=== PATIENT | female | born 1950 | race Caucasian/White ===

== ENCOUNTER 2024-10-25 08:46 | Observation (INO) | payer MEDICARE, MEDICAID, SELFPAY ==
[2024-10-25] VITALS (15 sets, daily range): BP systolic 91–139; BP diastolic 56–90; PULSE 60–115; RESP 14–22; TEMP 36.9–38.9; O2SAT 84–100; BMI 45.7; BMI 46.0
--- NOTE | 2024-10-25 08:49 | HMH.EDGENADL ---
Discharge Plan Disposition Patient Disposition: Admitted Clinical Impressions Clinical Impression: Sepsis Discharge ED Provider: Nathen Etienne General Adult HPI General Chief complaint: Fever Stated complaint: hypotenion,hypoglycemia Time Seen by Provider: 10/25/24 08:48 History of Present Illness HPI narrative: The patient presents with a history of low blood pressure, initially recorded in the 40s, which improved to around 100 before leaving their regular doctor's office. They also report fluctuating blood sugar levels, with a recent episode of hypoglycemia at midnight when their sugar level dropped to 52. The patient's caregiver had to force-feed them to increase their sugar levels, and the blood sugar was checked during the visit, measuring at 89. The patient underwent surgery two months ago for the removal of a charity and two broken screws, and a complete reconstruction of the heel. They have visited the ER twice this month due to pain and suspected infection, but it was determined that the issue was related to the medication from the surgery. The patient reports experiencing sharp chest pain. They deny any fever, abdominal pain, or pain during urination. They also deny any head injury. The patient is currently taking pain medication (Oxycodone, 5 mg) for their leg. Please note that above description of symptoms, in this electronic medical record under categorization of recalled from ER triage doctor by RN are reflective of an initial nursing assessment, however, is not reflective of my full history and physical exam that was personally taken and clarified. Consequentially, this preceding description of symptoms, which may include the patient's categorized chief complaint in the EMR, do not reflect my personal clinical impression, and the ultimate description of history of present illness and patient stated complaints should be deferred to this section of the note. Unless stated otherwise or congruent with this section of the note, additional signs, symptoms, or incongruence should be interpreted as inaccurate with my clinical impression. Related Data Home Medications ?Medication ?Instructions ?Recorded ?Confirmed aspirin 81 mg chewable tablet 81 mg PO DAILY heart 11/10/23 10/23/24 diclofenac sodium 50 mg 50 mg PO DAILY Arthritis 11/10/23 10/23/24 tablet,delayed release famotidine 20 mg tablet 20 mg PO DAILY GERD 11/10/23 10/23/24 ferrous sulfate 325 mg (65 mg 325 mg PO DAILY anemia 11/10/23 10/23/24 iron) tablet lactulose 10 gram/15 mL oral 20 g PO DAILY PRN bowel care 11/10/23 10/23/24 solution ondansetron HCl 4 mg tablet 4 mg PO Q6H PRN nausea and vomiting 11/10/23 10/23/24 levothyroxine 88 mcg capsule 88 mcg PO .6am hypothyroidism 11/11/23 10/23/24 lisinopril 20 mg tablet 20 mg PO DAILY HTN 11/11/23 10/23/24 magnesium oxide 500 mg capsule 500 mg PO DAILY hypomagnesium 11/11/23 10/23/24 omega 7-mqf-gcd-fish oil 300 2 cap PO DAILY hyperlipidemia 11/11/23 10/23/24 mg-1,000 mg capsule (Fish Oil) sennosides 8.6 mg-docusate sodium 2 tab-cap PO DAILY 11/11/23 10/23/24 50 mg tablet (Senexon-S) simvastatin 20 mg tablet 20 mg PO HS Cholesterol 11/11/23 10/23/24 Previous Rx's ?Medication ?Instructions ?Recorded metformin 1,000 mg tablet 1,000 mg PO BID #180 tabs 12/20/23 pseudoephedrine HCl 60 mg tablet 60 mg PO Q12H PRN nasal congestion 12/27/23 #60 tabs linagliptin 5 mg tablet (Tradjenta) 5 mg PO DAILY #90 tabs 04/03/24 acetaminophen 500 mg tablet 500 mg PO TID pain #270 tabs 06/05/24 aluminum hydrox-magnesium carb 95 30 ml PO Q4HP #355 mL 06/05/24 mg-358 mg/15 mL oral suspension (Acid Gone Antacid) guaifenesin 100 mg/5 mL oral liquid 200 mg (10 mL) PO Q12HP #1,000 mL 06/05/24 pregabalin 150 mg capsule (Lyrica) 150 mg PO .COMPLEX 30 days #120 06/12/24 caps empagliflozin 25 mg tablet 25 mg PO DAILY #90 tabs 06/19/24 (Jardiance) fexofenadine 60 mg tablet (Allergy 60 mg PO DAILY #90 tabs 06/26/24 Relief (fexofenadine)) insulin glargine 100 unit/mL (3 10 unit (0.1 mL) SQ HS #15 mL 09/18/24 mL) subcutaneous pen (Lantus Solostar U-100 Insulin) multivitamin 1 tab PO DAILY #90 tabs 09/18/24 hydrocodone 5 mg-acetaminophen 325 1 tab PO Q6H #30 tabs 10/24/24 mg tablet Allergies Allergy/AdvReac Type Severity Reaction Status Date / Time ceftriaxone (From Rocephin) Allergy Hives Verified 10/25/24 09:22 sulfamethoxazole (From Allergy Unknown Verified 10/25/24 09:22 Bactrim) allergy reaction trimethoprim (From Bactrim) Allergy Unknown Verified 10/25/24 09:22 allergy reaction PFSH PFS Disclaimer: The information contained in this section may have been updated after the patient was seen, as this information can be updated by other users. 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 attack (TIA), and cerebral infarction without residual deficits Edema, unspecified Gastro-esophageal reflux disease without esophagitis Polyneuropathy, unspecified Hypomagnesemia Hyperlipidemia, unspecified Hypothyroidism, unspecified Anemia, unspecified Type 2 diabetes mellitus with unspecified complications Family History (Updated 10/25/24 @ 14:56 by Mable Morillo, RN) Other No significant family history Social History (Updated 10/25/24 @ 14:57 by Mable Morillo, RN) Smoking Status: Never smoker alcohol intake: former current occupational status: disabled Travel in the last 8 weeks: None Contact w/someone who lives/traveled outside [place] past 30 days?: No Exposure to someone with infectious disease in past 14 days?: No Do you have a fever (greater than 100.4 F or 38 C)?: No Have you tested positive for COVID-19: No Exposed to someone with COVID-19 in past 14 days?: No Do you have a sore throat?: No Do you have a cough?: No Do you have any weakness?: No Are you experiencing any nausea/vomitting?: No Do you have any diarrhea?: No Are you experiencing any unusual bleeding?: No Do you have any muscle aches/pain?: No Do you have any abdominal pain?: No Are you experiencing loss of taste or smell?: No Other Medical History Have you received the Pneumonia Vaccine: Yes (06/26/15, 03/22/17) ROS Obtained: Yes other As per HPI Physical Exam General General appearance: alert and in no apparent distress Head Head exam: atraumatic and normocephalic Eye Eye exam: Present normal appearance Neck Neck exam: Present normal inspection Chest Chest inspection: Present normal inspection and symmetric chest wall rise Respiratory Respiratory exam: Present normal lung sounds bilaterally; Absent respiratory distress Cardiovascular Cardiovascular exam: Present regular rate and normal rhythm Abdominal Exam Abdominal exam: Present soft Neurological Exam Neurological exam: Present alert and oriented X3 Psychiatric Psychiatric exam: Present normal affect and normal mood Skin Skin exam: Present warm and dry Other Other exam information: Right lower extremity with external fixation hardware, no external evidence of infection Medical Decision Making Medical Records Medical records reviewed: Yes I reviewed the patient's medical records. Screening: Per USPSTF and CDC recommendations, given the prevalence of disease in our region, it is our hospital?s policy to screen for HIV and viral Hepatitis for all patients aged 18 and over and those with ongoing risk factors. William Inquiry Pt receiving controlled substance: No Vital Signs: 10/25/24 08:44 10/25/24 08:53 10/25/24 09:00 Temperature 102.1 F H Temperature Source Rectal Rectal Pulse Rate 106 H Pulse Rate [Right] 115 H Respiratory Rate 22 Blood Pressure 107/68 L Blood Pressure [Right Arm] 91/56 L Blood Pressure Mean [Right Arm] 67 Blood Pressure Source [Right Arm] 02 Sat by Pulse Oximetry 84 L 96 Oxygen Delivery Method Room Air Nasal Cannula Oxygen Flow Rate (LPM) 10/25/24 10:28 10/25/24 10:30 10/25/24 11:00 Temperature Temperature Source Pulse Rate 104 H 102 H 102 H Pulse Rate [Right] Respiratory Rate 17 16 16 Blood Pressure 128/68 125/73 139/74 Blood Pressure [Right Arm] Blood Pressure Mean [Right Arm] Blood Pressure Source [Right Arm] 02 Sat by Pulse Oximetry 98 96 99 Oxygen Delivery Method Room Air Room Air Room Air Oxygen Flow Rate (LPM) 10/25/24 11:30 10/25/24 12:00 10/25/24 12:30 Temperature Temperature Source Pulse Rate 103 H 106 H 110 H Pulse Rate [Right] Respiratory Rate 15 14 18 Blood Pressure 129/81 115/70 127/71 Blood Pressure [Right Arm] Blood Pressure Mean [Right Arm] Blood Pressure Source [Right Arm] 02 Sat by Pulse Oximetry 98 97 98 Oxygen Delivery Method Nasal Cannula Nasal Cannula Nasal Cannula Oxygen Flow Rate (LPM) 10/25/24 13:00 10/25/24 13:30 10/25/24 14:00 Temperature 98.5 F Temperature Source Oral Pulse Rate 62 60 Pulse Rate [Right] 105 H Respiratory Rate 17 21 19 Blood Pressure 108/59 L 103/65 L Blood Pressure [Right Arm] 109/90 L Blood Pressure Mean [Right Arm] 96 Blood Pressure Source [Right Arm] Automatic Cuff 02 Sat by Pulse Oximetry 95 94 L 97 Oxygen Delivery Method Nasal Cannula Nasal Cannula Nasal Cannula Oxygen Flow Rate (LPM) 3 10/25/24 14:09 Temperature 98.5 F Temperature Source Oral Pulse Rate 108 H Pulse Rate [Right] Respiratory Rate 20 Blood Pressure 103/65 L Blood Pressure [Right Arm] Blood Pressure Mean [Right Arm] Blood Pressure Source [Right Arm] 02 Sat by Pulse Oximetry Oxygen Delivery Method Nasal Cannula Oxygen Flow Rate (LPM) 3 Lab Data Lab Results 10/25/24 08:30: WBC 13.8 H, RBC 5.05, Hgb 15.4, Hct 49.1 H, MCV 97.2, MCH 30.5, MCHC 31.4 L, RDW 15.6, Plt Count 237, MPV 8.7, Neut % (Auto) 87.4 H, Lymph % (Auto) 6.5 L, [place] % (Auto) 5.2, Eos % (Auto) 0.1, Baso % (Auto) 0.7, Neut # (Auto) 12.1 H, Lymph # (Auto) 0.9, [place] # (Auto) 0.7, Eos # (Auto) 0.0, Baso # (Auto) 0.1, Total Counted 100, Neutrophils % (Manual) 84 H, Lymphocytes % (Manual) 11, Monocytes % (Manual) 5, Platelet Estimate Normal, RBC Morphology Normal, Sodium 139, Potassium 4.7, Chloride 108 H, Carbon Dioxide 27, Anion Gap 8.7, BUN 37 H, Creatinine 1.10 H, Estimated Creat Clear 35, Estimated GFR 49 L, Est GFR ( Amer) 59, Glucose 250 H, Lactate 2.5 H, Calcium 8.7, Magnesium 2.2, Total Bilirubin 0.4, AST 55 H, ALT 46, Alkaline Phosphatase 130 H, Total Creatine Kinase 56, NT-Pro-B Natriuret Pep 284 H, Total Protein 6.9, Albumin 3.7, Globulin 3.2, Albumin/Globulin Ratio 1.2, Lipase 41, SARS-CoV-2 (PCR) Not detected, HIV 1&2 Antibody Rapid Nonreactive, Influenza A Untype (PCR) Not detected, Influenza Type B (PCR) Not detected 10/25/24 08:48: VBG pH 7.27 L, VBG pCO2 54.2 H, VBG pO2 53.6 H, VBG HCO3 24.3, VBG Total CO2 26.0, VBG O2 Saturation 83.3 H, VBG Base Excess -2.6 L, VBG Lactic Acid 3.9 H 10/25/24 08:52: Urine Color Yellow, Urine Appearance Clear, Urine pH 5.5, Ur Specific [place] 1.020, Urine Protein Negative, Urine Glucose (UA) 3+, Urine Ketones Negative, Urine Blood Trace-i, Urine Nitrate Positive A, Urine Bilirubin Negative, Urine Urobilinogen 0.2, Ur Leukocyte Esterase Negative, Urine RBC Occasional, Urine WBC Occasional, Ur Squamous Epith Cells Occasional, Urine Bacteria Trace, Urine Yeast 2+ 10/25/24 13:28: Lactate 2.0 10/25/24 08:30 10/25/24 08:30 Orders (Tests/Meds): ED MEDICATIONS Generic Name Dose Route Start Last Admin Trade Name Freq PRN Reason Stop Dose Admin Acetaminophen 650 mg 10/25/24 13:51 Acetaminophen 325mg Tab PO 11/24/24 13:50 Q4HP PRN Fever or Mild Pain (1-3) Enoxaparin Sodium 40 mg 10/25/24 21:00 Enoxaparin 40mg/0.4ml Syringe SUBCUT 11/24/24 20:59 BID ZOE Ondansetron HCl 4 mg 10/25/24 13:51 Ondansetron 4mg/2ml Vial IV 11/24/24 13:50 Q8HP PRN Nausea Discontinued Medications Generic Name Dose Route Start Last Admin Trade Name Freq PRN Reason Stop Dose Admin Acetaminophen 1,000 mg 10/25/24 11:53 10/25/24 12:00 Acetaminophen 1,000mg/100ml Vial IV 10/25/24 11:54 1,000 mg ONCE ONE Administration Lactated Ringer's 1,000 mls @ 999 mls/hr 10/25/24 08:51 10/25/24 09:10 Lactated Ringer's 1000 Ml Bag IV 10/25/24 09:51 999 mls/hr .Q1H1M ONE Administration Piperacillin Sod/Tazobactam 100 mls @ 200 mls/hr 10/25/24 09:07 10/25/24 10:24 Sod 4.5 gm/ Sodium Chloride IV 10/25/24 09:36 200 mls/hr ONCE STA Administration Vancomycin HCl 2,000 mg/ 250 mls @ 125 mls/hr 10/25/24 09:30 10/25/24 10:58 Sodium Chloride IV 10/25/24 11:29 125 mls/hr ONCE ONE Administration Iopamidol 190 ml 10/25/24 10:00 10/25/24 10:03 Iopamidol-370 (76%);100ml Bottle IV 10/25/24 10:01 190 ml ONCE ONE Administration Sodium Chloride 100 ml 10/25/24 10:00 10/25/24 10:03 0.9 % Sodium Chloride 50 Ml Vial IV 10/25/24 10:01 100 ml ONCE ONE Administration Sodium Chloride 10 ml 10/25/24 10:00 10/25/24 10:04 Sodium Chloride 0.9% 10ml Syr (Rad Only) IV 11/24/24 09:59 10 ml NEEDED PRN Administration Maintain IV Site ORDERS Category Date Time Status CT angio abdomen/femoral Stat Cat Scan 10/25/24 09:[address] head/brain wo con Stat Cat Scan 10/25/24 09:14 Completed CTA Chest [CT angio chest PE protocol] Stat Cat Scan 10/25/24 09:07 Completed BNP [NT Pro Brain Natriuretic Pep.] Stat Lab 10/25/24 08:30 Completed CBC w/Auto Diff [Complete Blood Count Auto Diff] Stat Lab 10/25/24 08:30 Completed CK [Creatine Kinase] Stat Lab 10/25/24 08:30 Completed CMP [Comprehensive Metabolic Panel] Stat Lab 10/25/24 08:30 Completed HIV (1&2) Antibody Rapid Stat Lab 10/25/24 08:30 Completed Hep C Ab with Reflex to RNA Stat Lab 10/25/24 16:22 Received Lactic Acid Follow Up (RFLX 1) Stat Lab 10/25/24 13:28 Completed Lactic Acid Stat Lab 10/25/24 08:30 Completed Lipase Stat Lab 10/25/24 08:30 Completed MAG [Magnesium] Stat Lab 10/25/24 08:30 Completed Rapid PCR Covid and Flu A/B Stat Lab 10/25/24 08:30 Completed Urinalysis and Microscopic Stat Lab 10/25/24 08:52 Completed Blood Culture Stat Micro 10/25/24 08:55 Received Urine Culture Stat Micro 10/25/24 11:46 Received Venous Blood Gas Stat RT 10/25/24 08:48 Completed Medical Decision Narrative: Patient with history and exam per above presenting for evaluation of multiple complaints including syncope, hypoglycemia Diagnoses considered include polypharmacy, pulmonary embolism, infectious precipitant, among others. No focal neurologic deficits to suggest stroke at this time ED workup and treatment included: ED MEDICATIONS Generic Name Dose Route Start Last Admin Trade Name Freq PRN Reason Stop Dose Admin Acetaminophen 650 mg 10/25/24 13:51 Acetaminophen 325mg Tab PO 11/24/24 13:50 Q4HP PRN Fever or Mild Pain (1-3) Enoxaparin Sodium 40 mg 10/25/24 21:00 Enoxaparin 40mg/0.4ml Syringe SUBCUT 11/24/24 20:59 BID ZOE Ondansetron HCl 4 mg 10/25/24 13:51 Ondansetron 4mg/2ml Vial IV 11/24/24 13:50 Q8HP PRN Nausea Discontinued Medications Generic Name Dose Route Start Last Admin Trade Name Freq PRN Reason Stop Dose Admin Acetaminophen 1,000 mg 10/25/24 11:53 10/25/24 12:00 Acetaminophen 1,000mg/100ml Vial IV 10/25/24 11:54 1,000 mg ONCE ONE Administration Lactated Ringer's 1,000 mls @ 999 mls/hr 10/25/24 08:51 10/25/24 09:10 Lactated Ringer's 1000 Ml Bag IV 10/25/24 09:51 999 mls/hr .Q1H1M ONE Administration Piperacillin Sod/Tazobactam 100 mls @ 200 mls/hr 10/25/24 09:07 10/25/24 10:24 Sod 4.5 gm/ Sodium Chloride IV 10/25/24 09:36 200 mls/hr ONCE STA Administration Vancomycin HCl 2,000 mg/ 250 mls @ 125 mls/hr 10/25/24 09:30 10/25/24 10:58 Sodium Chloride IV 10/25/24 11:29 125 mls/hr ONCE ONE Administration Iopamidol 190 ml 10/25/24 10:00 10/25/24 10:03 Iopamidol-370 (76%);100ml Bottle IV 10/25/24 10:01 190 ml ONCE ONE Administration Sodium Chloride 100 ml 10/25/24 10:00 10/25/24 10:03 0.9 % Sodium Chloride 50 Ml Vial IV 10/25/24 10:01 100 ml ONCE ONE Administration Sodium Chloride 10 ml 10/25/24 10:00 10/25/24 10:04 Sodium Chloride 0.9% 10ml Syr (Rad Only) IV 11/24/24 09:59 10 ml NEEDED PRN Administration Maintain IV Site ORDERS Category Date Time Status CT angio abdomen/femoral Stat Cat Scan 10/25/24 09:[address] head/brain wo con Stat Cat Scan 10/25/24 09:14 Completed CTA Chest [CT angio chest PE protocol] Stat Cat Scan 10/25/24 09:07 Completed BNP [NT Pro Brain Natriuretic Pep.] Stat Lab 10/25/24 08:30 Completed CBC w/Auto Diff [Complete Blood Count Auto Diff] Stat Lab 10/25/24 08:30 Completed CK [Creatine Kinase] Stat Lab 10/25/24 08:30 Completed CMP [Comprehensive Metabolic Panel] Stat Lab 10/25/24 08:30 Completed HIV (1&2) Antibody Rapid Stat Lab 10/25/24 08:30 Completed Hep C Ab with Reflex to RNA Stat Lab 10/25/24 16:22 Received Lactic Acid Follow Up (RFLX 1) Stat Lab 10/25/24 13:28 Completed Lactic Acid Stat Lab 10/25/24 08:30 Completed Lipase Stat Lab 10/25/24 08:30 Completed MAG [Magnesium] Stat Lab 10/25/24 08:30 Completed Rapid PCR Covid and Flu A/B Stat Lab 10/25/24 08:30 Completed Urinalysis and Microscopic Stat Lab 10/25/24 08:52 Completed Blood Culture Stat Micro 10/25/24 08:55 Received Urine Culture Stat Micro 10/25/24 11:46 Received Venous Blood Gas Stat RT 10/25/24 08:48 Completed Labs were independently interpreted by me, significant for no acute findings Patient will benefit from mission to the hospital for further workup and treatment of hypoglycemia and syncopal episode. Patient was accepted for admission by hospitalist. Critical Care Critical Care Time Critical Care Time: No
--- NOTE | 2024-10-25 08:50 | PC.NURSE ---
notified of sepsis risk
[2024-10-25 08:54] LABS: VBG Base Excess -2.6 mmol/L (-2.4-2.3); VBG HCO3 24.3 mmol/L (23-30); VBG Oxygen Saturation 83.3 % (50-70); VBG PH 7.27 mmol/L (7.31-7.41); VBG PO2 53.6 mmol/L (28-40)
[2024-10-25 08:55] LABS: Coronavirus 19, PCR Not Detected (NotDetected); Influenza A, PCR Not Detected (NotDetected); Influenza B, PCR Not Detected (NotDetected)
[2024-10-25 08:57] LABS: Lactate Venous 3.9 mmol/L (0.4-2.0); VBG PCO2 54.2 mmol/L (35-51)
[2024-10-25 08:58] LABS: Basophils # 0.1 K/mm3 (0-0.2); Basophils % 0.7 % (0.1-2.0); Eosinophils % 0.1 % (0.1-12.0); Hematocrit 49.1 % (37.0-47.0); Hemoglobin 15.4 g/dL (12.2-16.2); Lymphocytes # 0.9 K/mm3 (0.7-4.5); Lymphocytes % 6.5 % (10-50); Mean Corpuscular HGB Conc 31.4 g/dL (31.8-35.4); Mean Corpuscular Hemoglobin 30.5 pg (27.0-31.2); Mean Corpuscular Volume 97.2 fl (81-99); Mean Platelet Volume 8.7 fl (7.4-10.4); Monocytes # 0.7 K/mm3 (0.1-1.0); Monocytes % 5.2 % (1.7-9.3); Neutrophils # 12.1 K/mm3 (1.8-7.8); Neutrophils % 87.4 % (37.0-80.0); Platelet Count 237 K/mm3 (142-424); Red Blood Count 5.05 M/mm3 (4.20-5.40); Red Cell Distribution Width 15.6 % (11.5-17.5); White Blood Count 13.8 K/mm3 (4.8-10.8)
[2024-10-25 09:02] LABS: Albumin Level 3.7 g/dl (3.5-5.0); Chloride 108 mmol/L (98-107); Sodium 139 mmol/L (136-145)
[2024-10-25 09:03] LABS: MANUAL DIFFERENTIAL MANUAL DIFFERENTIAL (MANUAL DIFF); Potassium 4.7 mmoL/L (3.5-5.1)
[2024-10-25 09:05] LABS: Alanine Aminotransferase 46 U/L (12-78); Anion Gap 8.7 mEq/L (5-15); Aspartate Amino Transferase 55 U/L (14-36); Blood Urea Nitrogen 37 mg/dl (7-17); Carbon Dioxide 27 mmol/L (22.0-30.0); Creatinine Clearance Estimated 35 mL/min (50-200); Estimated Glomerular Filt Rate 49 ml/min (>60); GFR (African American) 59 ML/MIN (>60)
[2024-10-25 09:06] LABS: Albumin/Globulin Ratio 1.2 (1.1-1.8); Alkaline Phosphatase 130 U/L (38-126); Bilirubin,Total 0.4 mg/dl (0.2-1.3); Calcium 8.7 mg/dl (8.4-10.2); Creatine Kinase 56 U/L (30-135); Globulin 3.2 g/dL (1.3-3.2); Glucose 250 mg/dl (74-100); Lipase 41 U/L (23-300); Magnesium 2.2 mg/dl (1.6-2.3); Total Protein,Serum 6.9 g/dl (6.3-8.2)
--- NOTE | 2024-10-25 09:07 | CT_ITS ---
FINAL REPORT TECHNIQUE: Then section axial CT images of the chest were obtained with contrast. Three-D reformatted images were also obtained.This study was performed with techniques to keep radiation doses as low as reasonably achievable (ALARA). Individualized dose reduction techniques using automated exposure control or adjustment of mA and/or kV according to the patient's size were employed. CLINICAL HISTORY: LLE with concern for DVT, soa, tachycardia COMPARISON: None FINDINGS: There is no evidence of pulmonary embolism. There is no evidence of thoracic aortic aneurysm or dissection. There is no evidence of mediastinal or hilar mass or adenopathy. Mild bibasilar atelectasis is present. There are mild pulmonary ground glass opacities noted, favor edema. There is no evidence of pulmonary mass or suspicious nodule. Note is made of a 23 mm right thyroid nodule. The remainder of the right lobe of the thyroid is not well-seen, and may be surgically absent. Recommend nonemergent thyroid ultrasound for further evaluation as clinically indicated. Limited images of the upper abdomen are unremarkable. IMPRESSION: No evidence of pulmonary embolism, dissection, or thoracic aortic aneurysm. Mild bibasilar atelectasis is noted, along with mild pulmonary ground glass opacities, favor edema. Remainder of the right lobe of the thyroid is not well seen, and may be surgically absent. Recommend nonemergent thyroid ultrasound for further evaluation as clinically indicated. Reviewed, Interpreted and Dictated by Nguyễn Cobian III, MD Transcribed by Radha Arceo Authenticated and [facility]
[2024-10-25] MEDS: LACTATED RINGERS 1000ML 1,000 ML 999 ML IV (09:10)
--- NOTE | 2024-10-25 09:13 | CT_ITS ---
FINAL REPORT TECHNIQUE: CTA imaging of the abdomen, pelvis and right femur was obtained. Reformatted images were also obtained and reviewed. This study was performed with techniques to keep radiation doses as low as reasonably achievable (ALARA). Individualized dose reduction techniques using automated exposure control or adjustment of mA and/or kV according to the patient's size were employed. CLINICAL HISTORY: LLE with concern for DVT, soa, tachy venous delay FINDINGS: There is no evidence of abdominal aortic aneurysm or dissection. Mild vascular calcifications are seen. The celiac artery, SMA and HERSON are unremarkable. Renal arteries are unremarkable. Iliac arteries are patent. Imaging of the right lower extremity demonstrates moderate vascular calcifications. There is three-vessel runoff to the distal lower right leg. There are postoperative changes of above-knee amputation on the left. There are multifocal, moderate to high-grade SFA stenoses of the left extremity. Distal SFA is occluded on the left. There is mild gallbladder wall thickening. Remaining solid abdominal organs are without acute abnormality. There is no adenopathy or free fluid. IMPRESSION: Three-vessel runoff to the distal lower right leg. 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 Reviewed, Interpreted and Dictated by Nguyễn Cobian III, MD Transcribed by Marquita Cabello Authenticated and [facility]
--- NOTE | 2024-10-25 09:14 | CT_ITS ---
FINAL REPORT CLINICAL HISTORY: ams COMPARISON: None FINDINGS: Axial images of the head were obtained without contrast. Coronal and sagittal reformatted images were also obtained. study was performed with techniques to keep radiation doses as low as reasonably achievable (ALARA). Individualized dose reduction techniques using automated exposure control or adjustment of mA and/or kV according to the patient's size were employed. Marked calvarial thickening causes artifact, greatest at the superior aspect of the head, decreasing overall sensitivity somewhat. There is no evidence of intracranial hemorrhage or mass. The ventricular size is within normal limits. There is no evidence of shift of the midline structures. No abnormal extra axial fluid collection is identified. No skull abnormality is seen on the bone window images. IMPRESSION: Marked calvarial thickening produces artifact greatest at the superior aspect of the head, which increases overall sensitivity. No definite acute intracranial abnormality is identified. Reviewed, Interpreted and Dictated by Nguyễn Cobian III, MD Transcribed by Radha Arceo Authenticated and [facility]
[2024-10-25 09:15] LABS: NT Pro Brain Natriuretic Pep. 284 pg/mL (0-125)
[2024-10-25 09:20] LABS: Lactic Acid 2.5 mmol/L (0.7-2.1)
[2024-10-25 09:51] LABS: Lymphocytes % 11 % (10-50); Monocytes % 5 % (2-9); Neutrophils % 84 % (42-76); Platelet Estimate Normal; RBC Morphology Normal; Total Cells Counted 100
[2024-10-25] MEDS: IOPAMIDOL-370 (76%);100ML BOTTLE 190 ML IV (10:03)
[2024-10-25] MEDS: 0.9 % SODIUM CHLORIDE 50 ML VIAL 100 ML IV (10:03)
[2024-10-25] MEDS: SODIUM CHLORIDE 0.9% 10ML SYR (RAD ONLY) 10 ML IV (10:04)
[2024-10-25] MEDS: PIPERACILLIN/TAZO 4.5 GM in 0.9 % SODIUM CHLORIDE 100 ML IV (10:24)
--- NOTE | 2024-10-25 10:27 | ECG_ITS ---
APPROVED REPORT Exam: Resting ECG HR:103 bpm ECG Measurements Heart Rate 103 AXES OR 197 P 62 QRSd 86 QRS 33 QT 314 T 150 QTc 374 Conclusion SINUS TACHYCARDIA POSSIBLE RIGHT VENTRICULAR CONDUCTION DELAY [RSR (QR) IN V1/V2] NONSPECIFIC T-WAVE ABNORMALITY ABNORMAL ECG Electronically signed by : CHAYITO HERNANDEZ, 11/03/2024 07:12:13
[2024-10-25] MEDS: VANCOMYCIN HCL 2,000 MG in 0.9 % SODIUM CHLORIDE 250 ML 125 MG IV (10:58)
[2024-10-25 11:53] LABS: Microscopic, Urine URINE MICROSCOPIC (MICROSCOPIC)
[2024-10-25 11:56] LABS: Appearance,Urine CLEAR (Clear); Bilirubin,Urine Negative (Negative); Blood, Urine TRACE-I (Negative); Color,Urine YELLOW (Yellow); Glucose,Urine (UA) 3+ (Negative); Ketones,Urine Negative (Negative); Leukocyte Esterase,Urine Negative (Negative); Nitrate,Urine POSITIVE (Negative); PH,Urine 5.5 (5.0-8.5); Protein,Urine Negative (Negative); Urobilinogen,Urine 0.2 EU/dl (0.2)
[2024-10-25] MEDS: ACETAMINOPHEN 1,000MG/100ML VIAL 1000 MG IV (12:00)
[2024-10-25 12:05] LABS: Bacteria,Urine Trace /lpf; RBC,Urine Occasional #/hpf (0-3); Squamous Epithelial Cell,Urine Occasional #/hpf (0-5); WBC,Urine Occasional #/hpf (0-3); Yeast,Urine 2+ /lpf
[2024-10-25 12:55] LABS: Reflex Lactic Add Lactic Reflex
--- NOTE | 2024-10-25 13:21 | PC.NURSE ---
Dr. Melchor s/w Dr Newell
--- NOTE | 2024-10-25 13:37 | PC.NURSE ---
speaking with house about a bed
--- NOTE | 2024-10-25 13:51 | EXP.HP ---
History of Present Illness *Admission Date: 10/25/24 *Reason for visit:: Generalized weakness, SIRS criteria *History of present illness: Camryn Dewey is a 74-year-old female with a medical history significant for insulin-dependent diabetes, hypothyroidism, hypertension, left AKA who presents from [facility] for concerns of alteration in mental status, generalized weakness. Patient states she has been feeling unwell for the last couple days, with myalgias throughout and generalized weakness. Denies fever/chills, cough, chest pain, shortness of breath, abdominal pain, urinary symptoms, constipation/diarrhea. Initial vital signs showed sinus tachycardia up to 115 and temperature of 102.1. Patient continued to have alteration in mental status, workup in the ED significant for WBC 13.8 with metabolic acidosis. Case discussed with ED provider and decision was made to admit patient for acute metabolic encephalopathy and further evaluation of SIRS. [facility] Disclaimer: The information contained in this section may have been updated after the patient was seen, as this information can be updated by other users. 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 attack (TIA), and cerebral infarction without residual deficits Edema, unspecified Gastro-esophageal reflux disease without esophagitis Polyneuropathy, unspecified Hypomagnesemia Hyperlipidemia, unspecified Hypothyroidism, unspecified Anemia, unspecified Type 2 diabetes mellitus with unspecified complications Family History (Updated 10/25/24 @ 14:56 by Mable Morillo RN) Other No significant family history Social History (Updated 10/25/24 @ 14:57 by Mable Morillo RN) Smoking Status: Never smoker alcohol intake: former current occupational status: disabled Travel in the last 8 weeks: None Contact w/someone who lives/traveled outside [place] past 30 days?: No Exposure to someone with infectious disease in past 14 days?: No Do you have a fever (greater than 100.4 F or 38 C)?: No Have you tested positive for COVID-19: No Exposed to someone with COVID-19 in past 14 days?: No Do you have a sore throat?: No Do you have a cough?: No Do you have any weakness?: No Are you experiencing any nausea/vomitting?: No Do you have any diarrhea?: No Are you experiencing any unusual bleeding?: No Do you have any muscle aches/pain?: No Do you have any abdominal pain?: No Are you experiencing loss of taste or smell?: No Other Medical History Have you received the Pneumonia Vaccine: Yes (06/26/15, 03/22/17) Meds Home Medications and Allergies Home Medications ?Medication ?Instructions ?Recorded ?Confirmed ?Type aspirin 81 mg chewable tablet 81 mg PO DAILY heart 11/10/23 10/23/24 History diclofenac sodium 50 mg 50 mg PO DAILY Arthritis 11/10/23 10/23/24 History tablet,delayed release famotidine 20 mg tablet 20 mg PO DAILY GERD 11/10/23 10/23/24 History ferrous sulfate 325 mg (65 mg 325 mg PO DAILY anemia 11/10/23 10/23/24 History iron) tablet lactulose 10 gram/15 mL oral 20 g PO DAILY PRN bowel care 11/10/23 10/23/24 History solution ondansetron HCl 4 mg tablet 4 mg PO Q6H PRN nausea and vomiting 11/10/23 10/23/24 History levothyroxine 88 mcg capsule 88 mcg PO .6am hypothyroidism 11/11/23 10/23/24 History lisinopril 20 mg tablet 20 mg PO DAILY HTN 11/11/23 10/23/24 History magnesium oxide 500 mg capsule 500 mg PO DAILY hypomagnesium 11/11/23 10/23/24 History omega 3-ofk-aax-fish oil 300 2 cap PO DAILY hyperlipidemia 11/11/23 10/23/24 History mg-1,000 mg capsule (Fish Oil) sennosides 8.6 mg-docusate sodium 2 tab-cap PO DAILY 11/11/23 10/23/24 History 50 mg tablet (Senexon-S) simvastatin 20 mg tablet 20 mg PO HS Cholesterol 11/11/23 10/23/24 History metformin 1,000 mg tablet 1,000 mg PO BID #180 tabs 12/20/23 10/23/24 Rx pseudoephedrine HCl 60 mg tablet 60 mg PO Q12H PRN nasal congestion 12/27/23 10/23/24 Rx #60 tabs linagliptin 5 mg tablet (Tradjenta) 5 mg PO DAILY #90 tabs 04/03/24 10/23/24 Rx acetaminophen 500 mg tablet 500 mg PO TID pain #270 tabs 06/05/24 10/23/24 Rx aluminum hydrox-magnesium carb 95 30 ml PO Q4HP #355 mL 06/05/24 10/23/24 Rx mg-358 mg/15 mL oral suspension (Acid Gone Antacid) guaifenesin 100 mg/5 mL oral liquid 200 mg (10 mL) PO Q12HP #1,000 mL 06/05/24 10/23/24 Rx pregabalin 150 mg capsule (Lyrica) 150 mg PO .COMPLEX 30 days #120 06/12/24 10/23/24 Rx caps empagliflozin 25 mg tablet 25 mg PO DAILY #90 tabs 06/19/24 10/23/24 Rx (Jardiance) fexofenadine 60 mg tablet (Allergy 60 mg PO DAILY #90 tabs 06/26/24 10/23/24 Rx Relief (fexofenadine)) insulin glargine 100 unit/mL (3 10 unit (0.1 mL) SQ HS #15 mL 09/18/24 10/23/24 Rx mL) subcutaneous pen (Lantus Solostar U-100 Insulin) multivitamin 1 tab PO DAILY #90 tabs 09/18/24 10/23/24 Rx hydrocodone 5 mg-acetaminophen 325 1 tab PO Q6H #30 tabs 10/24/24 Rx mg tablet New Prescriptions to Start Prescriptions: Allergies Allergy/AdvReac Type Severity Reaction Status Date / Time ceftriaxone (From Rocephin) Allergy Hives Verified 10/25/24 09:22 sulfamethoxazole (From Allergy Unknown Verified 10/25/24 09:22 Bactrim) allergy reaction trimethoprim (From Bactrim) Allergy Unknown Verified 10/25/24 09:22 allergy reaction Exam Data for Last 24 hours Vital signs and Labs for Last 24 Hours: Temp Pulse Resp BP Pulse Ox O2 Del Method 102.1 F H 60 21 103/65 L 94 L Nasal Cannula 10/25/24 08:44 10/25/24 13:30 10/25/24 13:30 10/25/24 13:30 10/25/24 13:30 10/25/24 13:30 Laboratory Results - last 24 hr 10/25/24 08:30: WBC 13.8 H, RBC 5.05, Hgb 15.4, Hct 49.1 H, MCV 97.2, MCH 30.5, MCHC 31.4 L, RDW 15.6, Plt Count 237, MPV 8.7, Neut % (Auto) 87.4 H, Lymph % (Auto) 6.5 L, [place] % (Auto) 5.2, Eos % (Auto) 0.1, Baso % (Auto) 0.7, Neut # (Auto) 12.1 H, Lymph # (Auto) 0.9, [place] # (Auto) 0.7, Eos # (Auto) 0.0, Baso # (Auto) 0.1, Total Counted 100, Neutrophils % (Manual) 84 H, Lymphocytes % (Manual) 11, Monocytes % (Manual) 5, Platelet Estimate Normal, RBC Morphology Normal, Sodium 139, Potassium 4.7, Chloride 108 H, Carbon Dioxide 27, Anion Gap 8.7, BUN 37 H, Creatinine 1.10 H, Estimated Creat Clear 35, Estimated GFR 49 L, Est GFR ( Amer) 59, Glucose 250 H, Lactate 2.5 H, Calcium 8.7, Magnesium 2.2, Total Bilirubin 0.4, AST 55 H, ALT 46, Alkaline Phosphatase 130 H, Total Creatine Kinase 56, NT-Pro-B Natriuret Pep 284 H, Total Protein 6.9, Albumin 3.7, Globulin 3.2, Albumin/Globulin Ratio 1.2, Lipase 41, SARS-CoV-2 (PCR) Not detected, Influenza A Untype (PCR) Not detected, Influenza Type B (PCR) Not detected 10/25/24 08:48: VBG pH 7.27 L, VBG pCO2 54.2 H, VBG pO2 53.6 H, VBG HCO3 24.3, VBG Total CO2 26.0, VBG O2 Saturation 83.3 H, VBG Base Excess -2.6 L, VBG Lactic Acid 3.9 H 10/25/24 08:52: Urine Color Yellow, Urine Appearance Clear, Urine pH 5.5, Ur Specific [place] 1.020, Urine Protein Negative, Urine Glucose (UA) 3+, Urine Ketones Negative, Urine Blood Trace-i, Urine Nitrate Positive A, Urine Bilirubin Negative, Urine Urobilinogen 0.2, Ur Leukocyte Esterase Negative, Urine RBC Occasional, Urine WBC Occasional, Ur Squamous Epith Cells Occasional, Urine Bacteria Trace, Urine Yeast 2+ I & O for Last 24 hours: Intake & Output 10/22/24 10/23/24 10/24/24 10/25/24 23:59 23:59 23:59 23:59 Weight 113.398 kg Constitutional Constitutional: no acute distress and obese *Routine HEENT Exam Head: Present normocephalic Eye: Present EOMI and PERRL ENT: Present mucous membranes moist *Routine Neck Exam Neck: Present supple; Absent lymphadenopathy *Routine Respiratory Exam Respiratory: Present CTA bilaterally *Routine Cardiovascular Exam Cardiovascular: Present RRR *Routine Abdominal Exam Abdominal: Present soft and normoactive bowel sounds; Absent tenderness *Routine Rectal Exam Rectal:: deferred *Routine Genitalia Exam Genitalia:: deferred *Routine Extremities Exam Extremities: Absent cyanosis, clubbing or edema Comments: Left AKA. Scattered erythema with tenderness right lower extremity. *Routine Skin Exam Skin: Present warm; Absent rash *Routine Neurological Exam Neurological: Present alert and oriented X3 Assessment and Plan *Assessment and plan (1) Phantom limb pain: Status: Acute Category: Medical Code(s): G54.6 - Phantom limb syndrome with pain (2) Type 2 diabetes mellitus with unspecified complications: Status: Acute Category: Medical Code(s): E11.8 - Type 2 diabetes mellitus with unspecified complications (3) Acute metabolic encephalopathy: Status: Acute Category: Medical Code(s): G93.41 - Metabolic encephalopathy Plan Camryn Dewey is a 74-year-old female with a medical history significant for insulin-dependent diabetes, hypothyroidism, hypertension, left AKA who presents from [facility] for concerns of alteration in mental status, generalized weakness. Patient states she has been feeling unwell for the last couple days, with myalgias throughout and generalized weakness. Denies fever/chills, cough, chest pain, shortness of breath, abdominal pain, urinary symptoms, constipation/diarrhea. Initial vital signs showed sinus tachycardia up to 115 and temperature of 102.1. Patient continued to have alteration in mental status, workup in the ED significant for WBC 13.8 with metabolic acidosis. Case discussed with ED provider and decision was made to admit patient for acute metabolic encephalopathy and further evaluation of SIRS. #Acute metabolic encephalopathy, resolved #SIRS #Possible UTI #Mild hypercarbia ? It is very likely patient was tachycardic hyper febrile due to a viral infection especially with generalized weakness, myalgias over the past few days. ? Patient states she feels better after a few hours after arriving to the floor. She received 1 L fluid bolus as vancomycin, Zosyn in the ED. ? Heart rate still in the high 90s, will give an additional 500ml bolus. ? Follow-up full respiratory panel. ? Follow-up blood cultures. ? UA is positive for nitrites but otherwise unremarkable. She does have yeast on her UA. Unlikely to cause SIRS, but will treat with Zosyn as patient is allergic to ceftriaxone. Follow-up urine culture. ? Fluconazole for yeast infection. ? VBG shows mixed respiratory and metabolic acidosis, with hypercarbia 52.4. Possibly from sleep apnea, obesity hypoventilation syndrome. DuoNebs every 8 hours. ? Anticipate discharge tomorrow if blood cultures are normal. ? Follow-up morning VBG. #Right lower extremity erythema, tenderness. ? Very mild scattered erythema over nava and calf, unlikely to represent cellulitis. But it is warmer, tender. Patient is at baseline stationary at the nursing facility due to left AKA. ? Follow-up DVT ultrasound. #Insulin-dependent diabetes ? Follow-up hemoglobin A1c. ? LDSSI, ACHS glucose checks. #Hypothyroidism ? Follow-up TSH. ? Resume home levothyroxine 88 mcg. #Hypertension ? Resume home medications once reconciled. #Left AKA with phantom limb syndrome ? Resume home pregabalin. Full code DVT prophylaxis: Lovenox 40 BID
--- NOTE | 2024-10-25 13:56 | PC.NURSE ---
Called report to Mable WESTON on Med/Surg
[2024-10-25 14:31] LABS: HIV (1&2) Antibody Rapid NONREACTIVE (NONREACTIVE)
--- NOTE | 2024-10-25 17:19 | ED_ITS ---
Discharge Plan Disposition Patient Disposition: Admitted Clinical Impressions Clinical Impression: Sepsis Discharge ED Provider: Nathen Etienne Adult HPI General Chief complaint: Fever Stated complaint: hypotenion,hypoglycemia Time Seen by Provider: 10/25/24 08:48 Mode of Arrival: EMS Source of Information: EMS Limitations: Altered Mental Status Description of Symptoms (Recalled from ER Triage Doc. by RN): pt is lethargic,fever,requiring o2 History of Present Illness HPI narrative: [facility] with concerns for altered mental status. Patient was reportedly altered starting today. Patient normally is interactive, history of type 2 diabetes, left-sided below the knee amputation. Patient denies any acute complaints at this time however history limited secondary to altered mental status. No previous therapies. Please note that above description of symptoms, in this electronic medical record under categorization of recalled from ER triage doctor by RN are reflective of an initial nursing assessment, however, is not reflective of my full history and physical exam that was personally taken and clarified. Consequentially, this preceding description of symptoms, which may include the patient's categorized chief complaint in the EMR, do not reflect my personal clinical impression, and the ultimate description of history of present illness and patient stated complaints should be deferred to this section of the note. Unless stated otherwise or congruent with this section of the note, additional signs, symptoms, or incongruence should be interpreted as inaccurate with my clinical impression. Related Data Home Medications ?Medication ?Instructions ?Recorded ?Confirmed aspirin 81 mg chewable tablet 81 mg PO DAILY heart 11/10/23 10/23/24 diclofenac sodium 50 mg 50 mg PO DAILY Arthritis 11/10/23 10/23/24 tablet,delayed release famotidine 20 mg tablet 20 mg PO DAILY GERD 11/10/23 10/23/24 ferrous sulfate 325 mg (65 mg 325 mg PO DAILY anemia 11/10/23 10/23/24 iron) tablet lactulose 10 gram/15 mL oral 20 g PO DAILY PRN bowel care 11/10/23 10/23/24 solution ondansetron HCl 4 mg tablet 4 mg PO Q6H PRN nausea and vomiting 11/10/23 10/23/24 levothyroxine 88 mcg capsule 88 mcg PO .6am hypothyroidism 11/11/23 10/23/24 lisinopril 20 mg tablet 20 mg PO DAILY HTN 11/11/23 10/23/24 magnesium oxide 500 mg capsule 500 mg PO DAILY hypomagnesium 11/11/23 10/23/24 omega 0-ydw-eya-fish oil 300 2 cap PO DAILY hyperlipidemia 11/11/23 10/23/24 mg-1,000 mg capsule (Fish Oil) sennosides 8.6 mg-docusate sodium 2 tab-cap PO DAILY 11/11/23 10/23/24 50 mg tablet (Senexon-S) simvastatin 20 mg tablet 20 mg PO HS Cholesterol 11/11/23 10/23/24 Previous Rx's ?Medication ?Instructions ?Recorded metformin 1,000 mg tablet 1,000 mg PO BID #180 tabs 12/20/23 pseudoephedrine HCl 60 mg tablet 60 mg PO Q12H PRN nasal congestion 12/27/23 #60 tabs linagliptin 5 mg tablet (Tradjenta) 5 mg PO DAILY #90 tabs 04/03/24 acetaminophen 500 mg tablet 500 mg PO TID pain #270 tabs 06/05/24 aluminum hydrox-magnesium carb 95 30 ml PO Q4HP #355 mL 06/05/24 mg-358 mg/15 mL oral suspension (Acid Gone Antacid) guaifenesin 100 mg/5 mL oral liquid 200 mg (10 mL) PO Q12HP #1,000 mL 06/05/24 pregabalin 150 mg capsule (Lyrica) 150 mg PO .COMPLEX 30 days #120 06/12/24 caps empagliflozin 25 mg tablet 25 mg PO DAILY #90 tabs 06/19/24 (Jardiance) fexofenadine 60 mg tablet (Allergy 60 mg PO DAILY #90 tabs 06/26/24 Relief (fexofenadine)) insulin glargine 100 unit/mL (3 10 unit (0.1 mL) SQ HS #15 mL 09/18/24 mL) subcutaneous pen (Lantus Solostar U-100 Insulin) multivitamin 1 tab PO DAILY #90 tabs 09/18/24 hydrocodone 5 mg-acetaminophen 325 1 tab PO Q6H #30 tabs 10/24/24 mg tablet Allergies Allergy/AdvReac Type Severity Reaction Status Date / Time ceftriaxone (From Rocephin) Allergy Hives Verified 10/25/24 09:22 sulfamethoxazole (From Allergy Unknown Verified 10/25/24 09:22 Bactrim) allergy reaction trimethoprim (From Bactrim) Allergy Unknown Verified 10/25/24 09:22 allergy reaction [facility] Disclaimer: The information contained in this section may have been updated after the patient was seen, as this information can be updated by other users. 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 attack (TIA), and cerebral infarction without residual deficits Edema, unspecified Gastro-esophageal reflux disease without esophagitis Polyneuropathy, unspecified Hypomagnesemia Hyperlipidemia, unspecified Hypothyroidism, unspecified Anemia, unspecified Type 2 diabetes mellitus with unspecified complications Family History (Updated 10/25/24 @ 14:56 by Mable Morillo, RN) Other No significant family history Social History (Updated 10/25/24 @ 14:57 by Mable Morillo, RN) Smoking Status: Never smoker alcohol intake: former current occupational status: disabled Travel in the last 8 weeks: None Contact w/someone who lives/traveled outside [place] past 30 days?: No Exposure to someone with infectious disease in past 14 days?: No Do you have a fever (greater than 100.4 F or 38 C)?: No Have you tested positive for COVID-19: No Exposed to someone with COVID-19 in past 14 days?: No Do you have a sore throat?: No Do you have a cough?: No Do you have any weakness?: No Are you experiencing any nausea/vomitting?: No Do you have any diarrhea?: No Are you experiencing any unusual bleeding?: No Do you have any muscle aches/pain?: No Do you have any abdominal pain?: No Are you experiencing loss of taste or smell?: No Other Medical History Have you received the Flu Vaccine for this season: No Have you received the Pneumonia Vaccine: No ROS Obtained: Yes other As per HPI Physical Exam General General appearance: lethargic Head Head exam: atraumatic and normocephalic Eye Eye exam: Present normal appearance Neck Neck exam: Present normal inspection Chest Chest inspection: Present normal inspection and symmetric chest wall rise Respiratory Respiratory exam: Present normal lung sounds bilaterally; Absent respiratory distress Cardiovascular Cardiovascular exam: Present normal rhythm and tachycardia Abdominal Exam Abdominal exam: Present soft Neurological Exam Neurological exam: Present alert and oriented X3 Psychiatric Psychiatric exam: Present flat affect Skin Skin exam: Present warm and dry Medical Decision Making Medical Records Medical records reviewed: Yes I reviewed the patient's medical records. Screening: Per USPSTF and CDC recommendations, given the prevalence of disease in our region, it is our hospital?s policy to screen for HIV and viral Hepatitis for all patients aged 18 and over and those with ongoing risk factors. William Inquiry Pt receiving controlled substance: No Vital Signs: 10/25/24 08:44 10/25/24 08:53 10/25/24 09:00 Temperature 102.1 F H Temperature Source Rectal Rectal Pulse Rate 106 H Pulse Rate [Right] 115 H Respiratory Rate 22 Blood Pressure 107/68 L Blood Pressure [Right Arm] 91/56 L Blood Pressure Mean [Right Arm] 67 Blood Pressure Source [Right Arm] 02 Sat by Pulse Oximetry 84 L 96 Oxygen Delivery Method Room Air Nasal Cannula Oxygen Flow Rate (LPM) 10/25/24 10:28 10/25/24 10:30 10/25/24 11:00 Temperature Temperature Source Pulse Rate 104 H 102 H 102 H Pulse Rate [Right] Respiratory Rate 17 16 16 Blood Pressure 128/68 125/73 139/74 Blood Pressure [Right Arm] Blood Pressure Mean [Right Arm] Blood Pressure Source [Right Arm] 02 Sat by Pulse Oximetry 98 96 99 Oxygen Delivery Method Room Air Room Air Room Air Oxygen Flow Rate (LPM) 10/25/24 11:30 10/25/24 12:00 10/25/24 12:30 Temperature Temperature Source Pulse Rate 103 H 106 H 110 H Pulse Rate [Right] Respiratory Rate 15 14 18 Blood Pressure 129/81 115/70 127/71 Blood Pressure [Right Arm] Blood Pressure Mean [Right Arm] Blood Pressure Source [Right Arm] 02 Sat by Pulse Oximetry 98 97 98 Oxygen Delivery Method Nasal Cannula Nasal Cannula Nasal Cannula Oxygen Flow Rate (LPM) 10/25/24 13:00 10/25/24 13:30 10/25/24 14:00 Temperature 98.5 F Temperature Source Oral Pulse Rate 62 60 Pulse Rate [Right] 105 H Respiratory Rate 17 21 19 Blood Pressure 108/59 L 103/65 L Blood Pressure [Right Arm] 109/90 L Blood Pressure Mean [Right Arm] 96 Blood Pressure Source [Right Arm] Automatic Cuff 02 Sat by Pulse Oximetry 95 94 L 97 Oxygen Delivery Method Nasal Cannula Nasal Cannula Nasal Cannula Oxygen Flow Rate (LPM) 3 10/25/24 14:09 Temperature 98.5 F Temperature Source Oral Pulse Rate 108 H Pulse Rate [Right] Respiratory Rate 20 Blood Pressure 103/65 L Blood Pressure [Right Arm] Blood Pressure Mean [Right Arm] Blood Pressure Source [Right Arm] 02 Sat by Pulse Oximetry Oxygen Delivery Method Nasal Cannula Oxygen Flow Rate (LPM) 3 Lab Data Lab Results 10/25/24 08:30: WBC 13.8 H, RBC 5.05, Hgb 15.4, Hct 49.1 H, MCV 97.2, MCH 30.5, MCHC 31.4 L, RDW 15.6, Plt Count 237, MPV 8.7, Neut % (Auto) 87.4 H, Lymph % (Auto) 6.5 L, [place] % (Auto) 5.2, Eos % (Auto) 0.1, Baso % (Auto) 0.7, Neut # (Auto) 12.1 H, Lymph # (Auto) 0.9, [place] # (Auto) 0.7, Eos # (Auto) 0.0, Baso # (Auto) 0.1, Total Counted 100, Neutrophils % (Manual) 84 H, Lymphocytes % (Manual) 11, Monocytes % (Manual) 5, Platelet Estimate Normal, RBC Morphology Normal, Sodium 139, Potassium 4.7, Chloride 108 H, Carbon Dioxide 27, Anion Gap 8.7, BUN 37 H, Creatinine 1.10 H, Estimated Creat Clear 35, Estimated GFR 49 L, Est GFR ( Amer) 59, Glucose 250 H, Lactate 2.5 H, Calcium 8.7, Magnesium 2.2, Total Bilirubin 0.4, AST 55 H, ALT 46, Alkaline Phosphatase 130 H, Total Creatine Kinase 56, NT-Pro-B Natriuret Pep 284 H, Total Protein 6.9, Albumin 3.7, Globulin 3.2, Albumin/Globulin Ratio 1.2, Lipase 41, SARS-CoV-2 (PCR) Not detected, HIV 1&2 Antibody Rapid Nonreactive, Influenza A Untype (PCR) Not detected, Influenza Type B (PCR) Not detected 10/25/24 08:48: VBG pH 7.27 L, VBG pCO2 54.2 H, VBG pO2 53.6 H, VBG HCO3 24.3, VBG Total CO2 26.0, VBG O2 Saturation 83.3 H, VBG Base Excess -2.6 L, VBG Lactic Acid 3.9 H 10/25/24 08:52: Urine Color Yellow, Urine Appearance Clear, Urine pH 5.5, Ur Specific [place] 1.020, Urine Protein Negative, Urine Glucose (UA) 3+, Urine Ketones Negative, Urine Blood Trace-i, Urine Nitrate Positive A, Urine Bilirubin Negative, Urine Urobilinogen 0.2, Ur Leukocyte Esterase Negative, Urine RBC Occasional, Urine WBC Occasional, Ur Squamous Epith Cells Occasional, Urine Bacteria Trace, Urine Yeast 2+ 10/25/24 13:28: Lactate 2.0 10/25/24 08:30 10/25/24 08:30 Orders (Tests/Meds): ED MEDICATIONS Generic Name Dose Route Start Last Admin Trade Name Marce PRN Reason Stop Dose Admin Acetaminophen 650 mg 10/25/24 13:51 Acetaminophen 325mg Tab PO 11/24/24 13:50 Q4HP PRN Fever or Mild Pain (1-3) Enoxaparin Sodium 40 mg 10/25/24 21:00 Enoxaparin 40mg/0.4ml Syringe SUBCUT 11/24/24 20:59 BID ZOE Ondansetron HCl 4 mg 10/25/24 13:51 Ondansetron 4mg/2ml Vial IV 11/24/24 13:50 Q8HP PRN Nausea Discontinued Medications Generic Name Dose Route Start Last Admin Trade Name Marce PRN Reason Stop Dose Admin Acetaminophen 1,000 mg 10/25/24 11:53 10/25/24 12:00 Acetaminophen 1,000mg/100ml Vial IV 10/25/24 11:54 1,000 mg ONCE ONE Administration Lactated Ringer's 1,000 mls @ 999 mls/hr 10/25/24 08:51 10/25/24 09:10 Lactated Ringer's 1000 Ml Bag IV 10/25/24 09:51 999 mls/hr .Q1H1M ONE Administration Piperacillin Sod/Tazobactam 100 mls @ 200 mls/hr 10/25/24 09:07 10/25/24 10:24 Sod 4.5 gm/ Sodium Chloride IV 10/25/24 09:36 200 mls/hr ONCE STA Administration Vancomycin HCl 2,000 mg/ 250 mls @ 125 mls/hr 10/25/24 09:30 10/25/24 10:58 Sodium Chloride IV 10/25/24 11:29 125 mls/hr ONCE ONE Administration Iopamidol 190 ml 10/25/24 10:00 10/25/24 10:03 Iopamidol-370 (76%);100ml Bottle IV 10/25/24 10:01 190 ml ONCE ONE Administration Sodium Chloride 100 ml 10/25/24 10:00 10/25/24 10:03 0.9 % Sodium Chloride 50 Ml Vial IV 10/25/24 10:01 100 ml ONCE ONE Administration Sodium Chloride 10 ml 10/25/24 10:00 10/25/24 10:04 Sodium Chloride 0.9% 10ml Syr (Rad Only) IV 11/24/24 09:59 10 ml NEEDED PRN Administration Maintain IV Site ORDERS Category Date Time Status CT angio abdomen/femoral Stat Cat Scan 10/25/24 09:[address] head/brain wo con Stat Cat Scan 10/25/24 09:14 Completed CTA Chest [CT angio chest PE protocol] Stat Cat Scan 10/25/24 09:07 Completed BNP [NT Pro Brain Natriuretic Pep.] Stat Lab 10/25/24 08:30 Completed CBC w/Auto Diff [Complete Blood Count Auto Diff] Stat Lab 10/25/24 08:30 Completed CK [Creatine Kinase] Stat Lab 10/25/24 08:30 Completed CMP [Comprehensive Metabolic Panel] Stat Lab 10/25/24 08:30 Completed HIV (1&2) Antibody Rapid Stat Lab 10/25/24 08:30 Completed Hep C Ab with Reflex to RNA Stat Lab 10/25/24 16:22 Received Lactic Acid Follow Up (RFLX 1) Stat Lab 10/25/24 13:28 Completed Lactic Acid Stat Lab 10/25/24 08:30 Completed Lipase Stat Lab 10/25/24 08:30 Completed MAG [Magnesium] Stat Lab 10/25/24 08:30 Completed Rapid PCR Covid and Flu A/B Stat Lab 10/25/24 08:30 Completed Urinalysis and Microscopic Stat Lab 10/25/24 08:52 Completed Blood Culture Stat Micro 10/25/24 08:55 Received Urine Culture Stat Micro 10/25/24 11:46 Received Venous Blood Gas Stat RT 10/25/24 08:48 Completed Medical Decision Narrative: Patient with history and exam per above presenting for evaluation of tachycardia, hypotension, fever Diagnoses considered include sepsis, UTI, polypharmacy, intracranial hemorrhage, among others ED workup and treatment included: ED MEDICATIONS Generic Name Dose Route Start Last Admin Trade Name Freq PRN Reason Stop Dose Admin Acetaminophen 650 mg 10/25/24 13:51 Acetaminophen 325mg Tab PO 11/24/24 13:50 Q4HP PRN Fever or Mild Pain (1-3) Enoxaparin Sodium 40 mg 10/25/24 21:00 Enoxaparin 40mg/0.4ml Syringe SUBCUT 11/24/24 20:59 BID ZOE Ondansetron HCl 4 mg 10/25/24 13:51 Ondansetron 4mg/2ml Vial IV 11/24/24 13:50 Q8HP PRN Nausea Discontinued Medications Generic Name Dose Route Start Last Admin Trade Name Freq PRN Reason Stop Dose Admin Acetaminophen 1,000 mg 10/25/24 11:53 10/25/24 12:00 Acetaminophen 1,000mg/100ml Vial IV 10/25/24 11:54 1,000 mg ONCE ONE Administration Lactated Ringer's 1,000 mls @ 999 mls/hr 10/25/24 08:51 10/25/24 09:10 Lactated Ringer's 1000 Ml Bag IV 10/25/24 09:51 999 mls/hr .Q1H1M ONE Administration Piperacillin Sod/Tazobactam 100 mls @ 200 mls/hr 10/25/24 09:07 10/25/24 10:24 Sod 4.5 gm/ Sodium Chloride IV 10/25/24 09:36 200 mls/hr ONCE STA Administration Vancomycin HCl 2,000 mg/ 250 mls @ 125 mls/hr 10/25/24 09:30 10/25/24 10:58 Sodium Chloride IV 10/25/24 11:29 125 mls/hr ONCE ONE Administration Iopamidol 190 ml 10/25/24 10:00 10/25/24 10:03 Iopamidol-370 (76%);100ml Bottle IV 10/25/24 10:01 190 ml ONCE ONE Administration Sodium Chloride 100 ml 10/25/24 10:00 10/25/24 10:03 0.9 % Sodium Chloride 50 Ml Vial IV 10/25/24 10:01 100 ml ONCE ONE Administration Sodium Chloride 10 ml 10/25/24 10:00 10/25/24 10:04 Sodium Chloride 0.9% 10ml Syr (Rad Only) IV 11/24/24 09:59 10 ml NEEDED PRN Administration Maintain IV Site ORDERS Category Date Time Status CT angio abdomen/femoral Stat Cat Scan 10/25/24 09:[address] head/brain wo con Stat Cat Scan 10/25/24 09:14 Completed CTA Chest [CT angio chest PE protocol] Stat Cat Scan 10/25/24 09:07 Completed BNP [NT Pro Brain Natriuretic Pep.] Stat Lab 10/25/24 08:30 Completed CBC w/Auto Diff [Complete Blood Count Auto Diff] Stat Lab 10/25/24 08:30 Completed CK [Creatine Kinase] Stat Lab 10/25/24 08:30 Completed CMP [Comprehensive Metabolic Panel] Stat Lab 10/25/24 08:30 Completed HIV (1&2) Antibody Rapid Stat Lab 10/25/24 08:30 Completed Hep C Ab with Reflex to RNA Stat Lab 10/25/24 16:22 Received Lactic Acid Follow Up (RFLX 1) Stat Lab 10/25/24 13:28 Completed Lactic Acid Stat Lab 10/25/24 08:30 Completed Lipase Stat Lab 10/25/24 08:30 Completed MAG [Magnesium] Stat Lab 10/25/24 08:30 Completed Rapid PCR Covid and Flu A/B Stat Lab 10/25/24 08:30 Completed Urinalysis and Microscopic Stat Lab 10/25/24 08:52 Completed Blood Culture Stat Micro 10/25/24 08:55 Received Urine Culture Stat Micro 10/25/24 11:46 Received Venous Blood Gas Stat RT 10/25/24 08:48 Completed Labs were independently interpreted by me, significant for leukocytosis, elevated inflammatory markers, metabolic acidosis Imaging was independently visualized and interpreted by me, significant for no acute surgical pathology Please refer to radiology report for full details. Patient will benefit from admission for further management of presumed sepsis. Patient was accepted for admission by hospitalist Critical Care Critical Care Time Critical Care Time: No
[2024-10-25] MEDS: IPRATROPIUM/ALBUTEROL 3 ML NEB IH (19:51)
[2024-10-25] MEDS: ENOXAPARIN 40MG/0.4ML SYRINGE 40 MG SUBCUT (20:14)
[2024-10-25] MEDS: PIPERCILLIN/TAZO 3.375 GM in 0.9 % SODIUM CHLORIDE 50 ML IV (20:33)
[2024-10-25] MEDS: FLUCONAZOLE 100MG TABLET 200 MG PO (20:36)
[2024-10-25] MEDS: 0.9 % SODIUM CHLORIDE 1000ML 1,000 ML 500 ML IV (20:38)
[2024-10-25] MEDS: humaLOG 100 UNITS/ML 10ML VIAL (SSI) SUBCUT (20:52)
[2024-10-25 20:53] LABS: POC Glucose,Bedside 181 (70-110)
[2024-10-26] VITALS: BP 117/60; PULSE 72; RESP 20; TEMP 36.6; O2SAT 92
[2024-10-26] MEDS: 0.9 % SODIUM CHLORIDE 1000ML 1,000 ML 100 ML IV ×2 (00:37→04:17)
[2024-10-26 04:00] VITALS: BP 119/74; PULSE 91; RESP 20; TEMP 37; O2SAT 94; BMI 42.7
[2024-10-26] MEDS: PIPERCILLIN/TAZO 3.375 GM in 0.9 % SODIUM CHLORIDE 50 ML IV (04:12)
[2024-10-26] MEDS: ACETAMINOPHEN 325MG TAB 650 MG PO (04:36)
--- NOTE | 2024-10-26 05:52 | PC.NURSE ---
10/26/24 0550: Pt is alert and orientated x4. Pt. needs some help turning and getting in a comfortable position. Pt. has a Rodriguez cath in place. Pt. slept off and on overnight. At 0400 Pt. c/o Neuropathic pain to right foot . Pt. medicated with Tylenol and fell back to sleep. VSS. Personal items and call cherry in reach.
[2024-10-26] MEDS: IPRATROPIUM/ALBUTEROL 3 ML NEB IH (06:07)
[2024-10-26 06:09] VITALS: PULSE 101; PULSE 103; O2SAT 95
[2024-10-26] MEDS: humaLOG 100 UNITS/ML 10ML VIAL (SSI) SUBCUT ×2 (06:22→12:23)
--- NOTE | 2024-10-26 06:22 | CA_ITS ---
FINAL REPORT TECHNIQUE: Multiple transverse and longitudinal images were performed of right the femoral-popliteal deep venous system with augmentation and compression maneuvers. CLINICAL HISTORY: right leg pain, Morbid obesity FINDINGS: Right lower extremity duplex ultrasound demonstrates normal flow in the deep venous system. There is no abnormal echogenicity to suggest thrombus. There is normal compression and augmentation. IMPRESSION: No evidence of right DVT. Reviewed, Interpreted and Dictated by Nguyễn Cobian III, MD Transcribed by Marquita Cabello Authenticated and [facility]
[2024-10-26 06:24] LABS: Lactate Venous 1.3 mmol/L (0.4-2.0); VBG Base Excess -5.2 mmol/L (-2.4-2.3); VBG HCO3 19.9 mmol/L (23-30); VBG Oxygen Saturation 99.5 % (50-70); VBG PCO2 34.4 mmol/L (35-51); VBG PH 7.38 mmol/L (7.31-7.41); VBG Total CO2 20.9 mmol/L (23-27)
[2024-10-26 06:39] LABS: POC Glucose,Bedside 151 (70-110)
[2024-10-26 06:52] LABS: Albumin Level 3.1 g/dl (3.5-5.0); Chloride 110 mmol/L (98-107); Sodium 140 mmol/L (136-145)
[2024-10-26 06:55] LABS: Alanine Aminotransferase 38 U/L (12-78); Albumin/Globulin Ratio 1.1 (1.1-1.8); Alkaline Phosphatase 119 U/L (38-126); Aspartate Amino Transferase 52 U/L (14-36); Bilirubin,Total 0.5 mg/dl (0.2-1.3); Blood Urea Nitrogen 24 mg/dl (7-17); Calcium 7.9 mg/dl (8.4-10.2); Carbon Dioxide 23 mmol/L (22.0-30.0); Chol/HDL Ratio 4.3 (1-3.5); Cholesterol 128 mg/dl (140-200); Creatinine Clearance Estimated 37 mL/min (50-200); Estimated Glomerular Filt Rate 54 ml/min (>60); GFR (African American) 66 ML/MIN (>60); Globulin 2.9 g/dL (1.3-3.2); Glucose 148 mg/dl (74-100); HDL Cholesterol 30 mg/dl (40-60); Triglycerides 200 mg/dl (30-150); VLDL Cholesterol 40 mg/dL (0-40)
[2024-10-26 06:56] LABS: Basophils % 0.2 % (0.1-2.0); Hematocrit 41.4 % (37.0-47.0); Lymphocytes # 1.1 K/mm3 (0.7-4.5); Mean Corpuscular HGB Conc 31.6 g/dL (31.8-35.4); Mean Corpuscular Hemoglobin 30.5 pg (27.0-31.2); Mean Corpuscular Volume 96.5 fl (81-99); Mean Platelet Volume 8.5 fl (7.4-10.4); Monocytes # 0.5 K/mm3 (0.1-1.0); Monocytes % 4.3 % (1.7-9.3); Neutrophils # 9.5 K/mm3 (1.8-7.8); Neutrophils % 85.3 % (37.0-80.0); Platelet Count 179 K/mm3 (142-424); Red Blood Count 4.29 M/mm3 (4.20-5.40); Red Cell Distribution Width 15.5 % (11.5-17.5); White Blood Count 11.2 K/mm3 (4.8-10.8)
[2024-10-26 07:02] LABS: MANUAL DIFFERENTIAL MANUAL DIFFERENTIAL (MANUAL DIFF)
[2024-10-26 07:06] LABS: Direct LDL Cholesterol 37.02 mg/dL (100-129)
[2024-10-26 07:10] LABS: HCV Ab Non Reactive (Non Reactive)
[2024-10-26 07:18] LABS: Adenovirus,PCR Not Detected (NotDetected); Bordetella Pertussis Not Detected (NotDetected); Chlamydophila Pneumoniae, PCR Not Detected (NotDetected); Coronavirus 19, PCR Not Detected (NotDetected); Coronavirus 229E Not Detected (NotDetected); Coronavirus NL63 Not Detected (NotDetected); Coronavirus OC43 Not Detected (NotDetected); Coronovirus HKU1,PCR Not Detected (NotDetected); Human Metapneumovirus Not Detected (NotDetected); Influenza A, PCR Not Detected (NotDetected); Influenza AH1, 2009 Not Detected (NotDetected); Influenza AH1, PCR Not Detected (NotDetected); Influenza AH3,PCR Not Detected (NotDetected); Influenza B, PCR Not Detected (NotDetected); Mycoplasma Pneumoniae, PCR Not Detected (NotDetected); Parainfluenza 1, PCR Not Detected (NotDetected); Parainfluenza 2, PCR Not Detected (NotDetected); Parainfluenza 3, PCR Not Detected (NotDetected); Parainfluenza 4, PCR Not Detected (NotDetected); Respiratory Syncytial Virus Not Detected (NotDetected); Rhinovirus/Enterovirus Not Detected (NotDetected)
[2024-10-26 07:26] LABS: Thyroid Stimulating Hormone 0.47 uIU/mL (0.465-4.68)
--- NOTE | 2024-10-26 07:58 | P.CONPHA_ITS ---
Pharmacy Intervention Comments: MEDICATION RECONCILIATION COMPLETED ON PATIENT USING MAR FROM [facility]. -GARY GERONIMO, JOSEPHINED
--- NOTE | 2024-10-26 07:58 | HMH.PHAINT1 ---
Pharmacy Intervention Comments: MEDICATION RECONCILIATION COMPLETED ON PATIENT USING [facility] FROM [facility]. -GARY GERONIMO, JOSEPHINED
[2024-10-26 08:00] VITALS: BP 98/55; PULSE 103; RESP 20; TEMP 36.7; O2SAT 95
[2024-10-26] MEDS: LEVOTHYROXINE 88MCG (0.088MG) TAB 88 MCG PO (08:04)
[2024-10-26] MEDS: PREGABALIN 50MG CAPSULE 150 MG PO ×2 (08:07→12:05)
[2024-10-26] MEDS: ENOXAPARIN 40MG/0.4ML SYRINGE 40 MG SUBCUT (08:09)
[2024-10-26 08:27] LABS: Lymphocytes % 12 % (10-50); Monocytes % 3 % (2-9); Neutrophils % 85 % (42-76); Platelet Estimate Normal; RBC Morphology Normal; Total Cells Counted 100
[2024-10-26 08:31] LABS: Hemoglobin 13.1 g/dL (12.2-16.2)
--- NOTE | 2024-10-26 08:45 | SW/DCPLANNER ---
Addendum entered by Taylor Priest 10/26/24 12:52: I have updated Negra w/ [facility] that patient will return today. Original Note: This patient currently resides at [facility] level of care. I will continue to follow up w/ Negra at [facility] until patient is medically stable for discharge. Discharge date is unknown at this time.
--- NOTE | 2024-10-26 11:45 | PC.NURSE ---
Rodriguez cath removed per Dr. Garcia.
--- NOTE | 2024-10-26 11:56 | EXP.DC.SUM ---
General Admission date:: 10/25/24 Discharge date: 10/26/24 HPI HPI HPI: Camryn Dewey is a 74-year-old female with a medical history significant for insulin-dependent diabetes, hypothyroidism, hypertension, left AKA who presents from [facility] for concerns of alteration in mental status, generalized weakness. Patient states she has been feeling unwell for the last couple days, with myalgias throughout and generalized weakness. Denies fever/chills, cough, chest pain, shortness of breath, abdominal pain, urinary symptoms, constipation/diarrhea. Initial vital signs showed sinus tachycardia up to 115 and temperature of 102.1. Patient continued to have alteration in mental status, workup in the ED significant for WBC 13.8 with metabolic acidosis. Case discussed with ED provider and decision was made to admit patient for acute metabolic encephalopathy and further evaluation of SIRS. Hospital Course Hospital Course Hospital Course: Camryn Dewey is a 74-year-old female with a medical history significant for insulin-dependent diabetes, hypothyroidism, hypertension, left AKA who presents from [facility] for concerns of alteration in mental status, generalized weakness. Patient states she has been feeling unwell for the last couple days, with myalgias throughout and generalized weakness. Denies fever/chills, cough, chest pain, shortness of breath, abdominal pain, urinary symptoms, constipation/diarrhea. Initial vital signs showed sinus tachycardia up to 115 and temperature of 102.1. Patient continued to have alteration in mental status, workup in the ED significant for WBC 13.8 with metabolic acidosis. Case discussed with ED provider and decision was made to admit patient for acute metabolic encephalopathy and further evaluation of SIRS. Found to have UTI. Doing better by morning. Stable to discharge back to nursing facility to complete antibiotics. Problems addressed as follows: #Acute metabolic encephalopathy, resolved #SIRS #Possible UTI #Mild hypercarbia ? It is very likely patient was tachycardic, febrile due to infection especially with generalized weakness, myalgias over the past few days. Concern for possible viral infection versus other source. Urine abnormal on admission. Initiated on antibiotics with Zosyn. Found to have Afia/yeast in her urine. Started on Diflucan. Patient felt better after arriving to the floor and receiving IV fluids and antibiotics. Showed improvement by morning. Patient does have edema noted on exam. See below. Urine culture still pending at discharge. Blood cultures negative at 48 hours. Given clinical improvement, stable to discharge back to nursing facility. #Right lower extremity erythema, tenderness. ? Very mild scattered erythema over nava and calf, not consistent with cellulitis. Ultrasound obtained with no DVT. Concern for edema. Initiate diuretics with Bumex 1 mg daily. Patient is at baseline stationary at the nursing facility due to left AKA. #Insulin-dependent diabetes: Continue home regimen with insulin glargine, empagliflozin, linagliptin, and metformin. Morning glucose 148 #Hypothyroidism: TSH 0.47, well controlled, continue home levothyroxine 88 mcg. #Hypertension: continue home medications. #Left AKA with phantom limb syndrome: Continue home pregabalin. Exam Data for Last 24 hours Vital signs and Labs for Last 24 Hours: Temp Pulse Resp BP Pulse Ox O2 Del Method O2 Flow Rate 98.0 F 103 H 20 98/55 L 95 Nasal Cannula 3 10/26/24 08:00 10/26/24 08:00 10/26/24 08:00 10/26/24 08:00 10/26/24 08:00 10/26/24 10:43 10/26/24 10:43 Laboratory Results - last 24 hr 10/25/24 01:00: Chlamy pneumoniae PCR Not detected, Adenovirus (PCR) Not detected, B. pertussis DNA (PCR) Not detected, Coronavirus OC43 (PCR) Not detected, Coronavirus HKU1 (PCR) Not detected, Coronavirus 229E (PCR) Not detected, SARS-CoV-2 (PCR) Not detected, Coronavirus NL63 (PCR) Not detected, Human Metapneumovir PCR Not detected, Influenza A (H1) PCR Not detected, Influ A (H1N1/09) PCR Not detected, Influenza A (H3) PCR Not detected, Influenza Type A (PCR) Not detected, Influenza Type B (PCR) Not detected, M. pneumoniae (PCR) Not detected, Parainfluenza 1 (PCR) Not detected, Parainfluenza 2 (PCR) Not detected, Parainfluenza 3 (PCR) Not detected, Parainfluenza 4 (PCR) Not detected, RSV (PCR) Not detected, Entero/Rhino (PCR) Not detected 10/25/24 08:30: HIV 1&2 Antibody Rapid Nonreactive 10/25/24 08:52: Urine Color Yellow, Urine Appearance Clear, Urine pH 5.5, Ur Specific [place] 1.020, Urine Protein Negative, Urine Glucose (UA) 3+, Urine Ketones Negative, Urine Blood Trace-i, Urine Nitrate Positive A, Urine Bilirubin Negative, Urine Urobilinogen 0.2, Ur Leukocyte Esterase Negative, Urine RBC Occasional, Urine WBC Occasional, Ur Squamous Epith Cells Occasional, Urine Bacteria Trace, Urine Yeast 2+ 10/25/24 13:28: Lactate 2.0 10/25/24 16:22: Hepatitis C Antibody Non reactive 10/25/24 20:44: POC Glucose 181 H 10/26/24 06:00: VBG pH 7.38, VBG pCO2 34.4 L, VBG pO2 212.0 H, VBG HCO3 19.9 L, VBG Total CO2 20.9 L, VBG O2 Saturation 99.5 H, VBG Base Excess -5.2 L, VBG Lactic Acid 1.3 10/26/24 06:14: WBC 11.2 H, RBC 4.29, Hgb 13.1 D, Hct 41.4, MCV 96.5, MCH 30.5, MCHC 31.6 L, RDW 15.5, Plt Count 179, MPV 8.5, Neut % (Auto) 85.3 H, Lymph % (Auto) 10.0, [place] % (Auto) 4.3, Eos % (Auto) 0.0 L, Baso % (Auto) 0.2, Neut # (Auto) 9.5 H, Lymph # (Auto) 1.1, [place] # (Auto) 0.5, Eos # (Auto) 0.0, Baso # (Auto) 0.0, Total Counted 100, Neutrophils % (Manual) 85 H, Lymphocytes % (Manual) 12, Monocytes % (Manual) 3, Platelet Estimate Normal, RBC Morphology Normal, Sodium 140, Potassium 4.0, Chloride 110 H, Carbon Dioxide 23, Anion Gap 11.0, BUN 24 H D, Creatinine 1.00, Estimated Creat Clear 37, Estimated GFR 54 L, Est GFR ( Amer) 66, Glucose 148 H D, POC Glucose 151 H, Calcium 7.9 L, Total Bilirubin 0.5, AST 52 H, ALT 38, Alkaline Phosphatase 119, Total Protein 6.0 L, Albumin 3.1 L D, Globulin 2.9, Albumin/Globulin Ratio 1.1, Triglycerides 200 H, Cholesterol 128 L, LDL Cholesterol Direct 37.02 L, VLDL Cholesterol 40, HDL Cholesterol 30 L, Cholesterol/HDL Ratio 4.3 H, TSH 0.47 I & O for Last 24 hours: Intake & Output 10/23/24 10/24/24 10/25/24 10/26/24 23:59 23:59 23:59 23:59 Intake Total 1710 / 2950 1780 / 1780 Output Total 2325 / 2325 950 / 950 Balance -615 / 625 830 / 830 Weight 113.398 kg 105.415 kg Microbiology Reports for the Last 24 Hours: Microbiology 10/25/24 08:55 Blood Blood Culture - Preliminary NO GROWTH AFTER 24 HOURS 10/25/24 08:55 Blood Blood Culture - Preliminary NO GROWTH AFTER 24 HOURS Constitutional Constitutional: no acute distress, morbidly obese, chronically ill appearing and cooperative *Routine HEENT Exam Head: Present normocephalic Eye: Present EOMI and PERRL ENT: Present mucous membranes moist *Routine Neck Exam Neck: Present supple; Absent lymphadenopathy *Routine Respiratory Exam Respiratory: Present CTA bilaterally; Absent respiratory distress, rhonchi, stridor, wheezes or crackles *Routine Cardiovascular Exam Cardiovascular: Present RRR *Routine Abdominal Exam Abdominal: Present soft and normoactive bowel sounds; Absent tenderness *Routine Rectal Exam Patient deferred: visual exam *Routine Exam Patient deferred: external exam *Routine Extremities Exam Extremities: Present edema (Trace in RLE and 1+ in RUE); Absent cyanosis or clubbing Comments: LEFT aka *Routine Skin Exam Skin: Present warm; Absent rash *Routine Neurological Exam Neurological: Present alert, oriented X3 and moving all extremities; Absent altered mental status Comments: at baseline Results Data Completed and Pending Labs on day of discharge: Labs from last 24 hours 10/26/24 10/26/24 10/25/24 06:14 06:00 20:44 WBC 11.2 H RBC 4.29 Hgb 13.1 D Hct 41.4 MCV 96.5 MCH 30.5 MCHC 31.6 L RDW 15.5 Plt Count 179 MPV 8.5 Neut % (Auto) 85.3 H Lymph % (Auto) 10.0 [place] % (Auto) 4.3 Eos % (Auto) 0.0 L Baso % (Auto) 0.2 Neut # (Auto) 9.5 H Lymph # (Auto) 1.1 [place] # (Auto) 0.5 Eos # (Auto) 0.0 Baso # (Auto) 0.0 Total Counted 100 Neutrophils % (Manual) 85 H Lymphocytes % (Manual) 12 Monocytes % (Manual) 3 Platelet Estimate Normal RBC Morphology Normal VBG pH 7.38 VBG pCO2 34.4 L VBG pO2 212.0 H VBG HCO3 19.9 L VBG Total CO2 20.9 L VBG O2 Saturation 99.5 H VBG Base Excess -5.2 L VBG Lactic Acid 1.3 Sodium 140 Potassium 4.0 Chloride 110 H Carbon Dioxide 23 Anion Gap 11.0 BUN 24 H D Creatinine 1.00 Estimated Creat Clear 37 Estimated GFR 54 L Est GFR ( Amer) 66 Glucose 148 H D POC Glucose 151 H 181 H Lactate Calcium 7.9 L Total Bilirubin 0.5 AST 52 H ALT 38 Alkaline Phosphatase 119 Total Protein 6.0 L Albumin 3.1 L D Globulin 2.9 Albumin/Globulin Ratio 1.1 Triglycerides 200 H Cholesterol 128 L LDL Cholesterol Direct 37.02 L VLDL Cholesterol 40 HDL Cholesterol 30 L Cholesterol/HDL Ratio 4.3 H TSH 0.47 Urine Color Urine Appearance Urine pH Ur Specific [place] Urine Protein Urine Glucose (UA) Urine Ketones Urine Blood Urine Nitrate Urine Bilirubin Urine Urobilinogen Ur Leukocyte Esterase Urine RBC Urine WBC Ur Squamous Epith Cells Urine Bacteria Urine Yeast Chlamy pneumoniae PCR Adenovirus (PCR) B. pertussis DNA (PCR) Coronavirus OC43 (PCR) Coronavirus HKU1 (PCR) Coronavirus 229E (PCR) SARS-CoV-2 (PCR) Coronavirus NL63 (PCR) Hepatitis C Antibody HIV 1&2 Antibody Rapid Human Metapneumovir PCR Influenza A (H1) PCR Influ A (H1N1/09) PCR Influenza A (H3) PCR Influenza Type A (PCR) Influenza Type B (PCR) M. pneumoniae (PCR) Parainfluenza 1 (PCR) Parainfluenza 2 (PCR) Parainfluenza 3 (PCR) Parainfluenza 4 (PCR) RSV (PCR) Entero/Rhino (PCR) 10/25/24 10/25/24 10/25/24 16:22 13:28 08:52 WBC RBC Hgb Hct MCV MCH MCHC RDW Plt Count MPV Neut % (Auto) Lymph % (Auto) [place] % (Auto) Eos % (Auto) Baso % (Auto) Neut # (Auto) Lymph # (Auto) [place] # (Auto) Eos # (Auto) Baso # (Auto) Total Counted Neutrophils % (Manual) Lymphocytes % (Manual) Monocytes % (Manual) Platelet Estimate RBC Morphology VBG pH VBG pCO2 VBG pO2 VBG HCO3 VBG Total CO2 VBG O2 Saturation VBG Base Excess VBG Lactic Acid Sodium Potassium Chloride Carbon Dioxide Anion Gap BUN Creatinine Estimated Creat Clear Estimated GFR Est GFR ( Amer) Glucose POC Glucose Lactate 2.0 Calcium Total Bilirubin AST ALT Alkaline Phosphatase Total Protein Albumin Globulin Albumin/Globulin Ratio Triglycerides Cholesterol LDL Cholesterol Direct VLDL Cholesterol HDL Cholesterol Cholesterol/HDL Ratio TSH Urine Color Yellow Urine Appearance Clear Urine pH 5.5 Ur Specific [place] 1.020 Urine Protein Negative Urine Glucose (UA) 3+ Urine Ketones Negative Urine Blood Trace-i Urine Nitrate Positive A Urine Bilirubin Negative Urine Urobilinogen 0.2 Ur Leukocyte Esterase Negative Urine RBC Occasional Urine WBC Occasional Ur Squamous Epith Cells Occasional Urine Bacteria Trace Urine Yeast 2+ Chlamy pneumoniae PCR Adenovirus (PCR) B. pertussis DNA (PCR) Coronavirus OC43 (PCR) Coronavirus HKU1 (PCR) Coronavirus 229E (PCR) SARS-CoV-2 (PCR) Coronavirus NL63 (PCR) Hepatitis C Antibody Non reactive HIV 1&2 Antibody Rapid Human Metapneumovir PCR Influenza A (H1) PCR Influ A (H1N1/09) PCR Influenza A (H3) PCR Influenza Type A (PCR) Influenza Type B (PCR) M. pneumoniae (PCR) Parainfluenza 1 (PCR) Parainfluenza 2 (PCR) Parainfluenza 3 (PCR) Parainfluenza 4 (PCR) RSV (PCR) Entero/Rhino (PCR) 10/25/24 10/25/24 08:30 01:00 WBC RBC Hgb Hct MCV MCH MCHC RDW Plt Count MPV Neut % (Auto) Lymph % (Auto) [place] % (Auto) Eos % (Auto) Baso % (Auto) Neut # (Auto) Lymph # (Auto) [place] # (Auto) Eos # (Auto) Baso # (Auto) Total Counted Neutrophils % (Manual) Lymphocytes % (Manual) Monocytes % (Manual) Platelet Estimate RBC Morphology VBG pH VBG pCO2 VBG pO2 VBG HCO3 VBG Total CO2 VBG O2 Saturation VBG Base Excess VBG Lactic Acid Sodium Potassium Chloride Carbon Dioxide Anion Gap BUN Creatinine Estimated Creat Clear Estimated GFR Est GFR ( Amer) Glucose POC Glucose Lactate Calcium Total Bilirubin AST ALT Alkaline Phosphatase Total Protein Albumin Globulin Albumin/Globulin Ratio Triglycerides Cholesterol LDL Cholesterol Direct VLDL Cholesterol HDL Cholesterol Cholesterol/HDL Ratio TSH Urine Color Urine Appearance Urine pH Ur Specific [place] Urine Protein Urine Glucose (UA) Urine Ketones Urine Blood Urine Nitrate Urine Bilirubin Urine Urobilinogen Ur Leukocyte Esterase Urine RBC Urine WBC Ur Squamous Epith Cells Urine Bacteria Urine Yeast Chlamy pneumoniae PCR Not detected Adenovirus (PCR) Not detected B. pertussis DNA (PCR) Not detected Coronavirus OC43 (PCR) Not detected Coronavirus HKU1 (PCR) Not detected Coronavirus 229E (PCR) Not detected SARS-CoV-2 (PCR) Not detected Coronavirus NL63 (PCR) Not detected Hepatitis C Antibody HIV 1&2 Antibody Rapid Nonreactive Human Metapneumovir PCR Not detected Influenza A (H1) PCR Not detected Influ A (H1N1/09) PCR Not detected Influenza A (H3) PCR Not detected Influenza Type A (PCR) Not detected Influenza Type B (PCR) Not detected M. pneumoniae (PCR) Not detected Parainfluenza 1 (PCR) Not detected Parainfluenza 2 (PCR) Not detected Parainfluenza 3 (PCR) Not detected Parainfluenza 4 (PCR) Not detected RSV (PCR) Not detected Entero/Rhino (PCR) Not detected Preliminary micro results at discharge 10/25/24 08:55 Blood Culture - Preliminary Blood NO GROWTH AFTER 24 HOURS 10/25/24 08:55 Blood Culture - Preliminary Blood NO GROWTH AFTER 24 HOURS DS: Diagnosis Discharge Diagnosis (1) UTI (urinary tract infection): Status: Acute Code(s): N39.0 - Urinary tract infection, site not specified (2) Phantom limb pain: Status: Acute Code(s): G54.6 - Phantom limb syndrome with pain (3) Type 2 diabetes mellitus with unspecified complications: Status: Acute Code(s): E11.8 - Type 2 diabetes mellitus with unspecified complications (4) Acute metabolic encephalopathy: Status: Acute Code(s): G93.41 - Metabolic encephalopathy Meds Home Medications and Allergies Home Medications ?Medication ?Instructions ?Recorded ?Confirmed ?Type aspirin 81 mg chewable tablet 81 mg PO DAILY 11/10/23 10/26/24 History diclofenac sodium 50 mg 50 mg PO DAILY 11/10/23 10/26/24 History tablet,delayed release famotidine 20 mg tablet 20 mg PO DAILY 11/10/23 10/26/24 History ferrous sulfate 325 mg (65 mg 325 mg PO DAILY 11/10/23 10/26/24 History iron) tablet lactulose 10 gram/15 mL oral 20 g PO DAILYP PRN bowel care 11/10/23 10/26/24 History solution ondansetron HCl 4 mg tablet 4 mg PO Q6HP PRN nausea and 11/10/23 10/26/24 History vomiting levothyroxine 88 mcg capsule 88 mcg PO DAILY 11/11/23 10/26/24 History magnesium oxide 500 mg capsule 500 mg PO DAILY 11/11/23 10/26/24 History omega 8-[id number]-[id number]-fish oil 300 2 cap PO DAILY 11/11/23 10/26/24 History mg-1,000 mg capsule (Fish Oil) sennosides 8.6 mg-docusate sodium 2 tab-cap PO DAILY 11/11/23 10/26/24 History 50 mg tablet (Senexon-S) simvastatin 20 mg tablet 20 mg PO HS 11/11/23 10/26/24 History linagliptin 5 mg tablet (Tradjenta) 5 mg PO DAILY #90 tabs 04/03/24 10/26/24 Rx pregabalin 150 mg capsule (Lyrica) 150 mg PO .COMPLEX 30 days #120 06/12/24 10/26/24 Rx caps empagliflozin 25 mg tablet 25 mg PO DAILY #90 tabs 06/19/24 10/26/24 Rx (Jardiance) fexofenadine 60 mg tablet (Allergy 60 mg PO DAILY #90 tabs 06/26/24 10/26/24 Rx Relief (fexofenadine)) insulin glargine 100 unit/mL (3 10 unit (0.1 mL) SQ HS #15 mL 09/18/24 10/26/24 Rx mL) subcutaneous pen (Lantus Solostar U-100 Insulin) multivitamin 1 tab PO DAILY #90 tabs 09/18/24 10/26/24 Rx acetaminophen 500 mg tablet 500 mg PO TID 10/26/24 10/26/24 History aluminum hydrox-magnesium carb 95 30 ml PO Q4HP Heartburn 10/26/24 10/26/24 History mg-358 mg/15 mL oral suspension (Acid Gone Antacid) bumetanide 0.5 mg tablet 0.5 mg PO DAILY #30 tabs 10/26/24 Rx fluconazole 100 mg tablet 100 mg PO DAILY 9 days #9 tabs 10/26/24 Rx (Diflucan) guaifenesin 100 mg/5 mL oral liquid 200 mg PO Q12HP Cough 10/26/24 10/26/24 History hydrocodone 5 mg-acetaminophen 325 1 tab PO Q6H 10/26/24 10/26/24 History mg tablet levofloxacin 750 mg tablet 750 mg PO Q48H 4 days #2 tabs 10/26/24 Rx lisinopril 20 mg tablet 10 mg (1/2 x 20 mg) PO DAILY 30 10/26/24 10/26/24 Rx days #0 tabs metformin 1,000 mg tablet 1,000 mg PO BIDWMEAL 10/26/24 10/26/24 History pseudoephedrine HCl 60 mg tablet 60 mg PO Q12HP PRN nasal congestion 10/26/24 10/26/24 History New Prescriptions to Start Prescriptions: felicianoanide Reggie Garcia fluconazole [Diflucan] Reggie Garcia levofloxacin Reggie Garcia Allergies Allergy/AdvReac Type Severity Reaction Status Date / Time ceftriaxone (From Rocephin) Allergy Hives Verified 10/25/24 09:22 sulfamethoxazole (From Allergy Unknown Verified 10/25/24 09:22 Bactrim) allergy reaction trimethoprim (From Bactrim) Allergy Unknown Verified 10/25/24 09:22 allergy reaction Discharge Plan Disposition Patient Disposition: er Intermediate Care Fac Condition: Fair Discharge Order Discharge Orders: Discharge Order (Routine); Ordered 10/26/24 Ordered By: Reggie Garcia Follow up Plan Prescriptions/Medication Reconciliation: New levofloxacin 750 mg tablet 750 mg PO Q48H 4 Days Qty: 2 0RF Rx Instructions: first dose due 10/28/24 bumetanide 0.5 mg tablet 0.5 mg PO DAILY Qty: 30 0RF fluconazole [Diflucan] 100 mg tablet 100 mg PO DAILY 9 Days Qty: 9 0RF Continued lactulose 10 gram/15 mL solution 20 g PO DAILYP PRN (Reason: bowel care) ondansetron HCl 4 mg tablet 4 mg PO Q6HP PRN (Reason: nausea and vomiting) aspirin 81 mg tablet,chewable 81 mg PO DAILY diclofenac sodium 50 mg tablet,delayed release (DR/EC) 50 mg PO DAILY famotidine 20 mg tablet 20 mg PO DAILY ferrous sulfate 325 mg (65 mg iron) tablet 325 mg PO DAILY omega 6-[id number]-fish oil [Fish Oil] 300-1,000 mg capsule 2 cap PO DAILY levothyroxine 88 mcg capsule 88 mcg PO DAILY magnesium oxide 500 mg capsule 500 mg PO DAILY sennosides-docusate sodium [Senexon-S] 8.6-50 mg tablet 2 tab-cap PO DAILY simvastatin 20 mg tablet 20 mg PO HS Tradjenta 5 mg tablet 5 mg PO DAILY Qty: 90 3RF pregabalin [Lyrica] 150 mg capsule 150 mg PO .COMPLEX 30 Days Qty: 120 5RF Rx Instructions: 1 tablet in AM , 1 tablet at noon, 2 tablets at HS Jardiance 25 mg tablet 25 mg PO DAILY Qty: 90 3RF fexofenadine [Allergy Relief (fexofenadine)] 60 mg tablet 60 mg PO DAILY Qty: 90 3RF insulin glargine [Lantus Solostar U-100 Insulin] 100 unit/mL (3 mL) insulin pen 10 unit SQ HS Qty: 15 11RF multivitamin Tablet 1 tab PO DAILY Qty: 90 3RF hydrocodone-acetaminophen 5-325 mg tablet 1 tab PO Q6H Patient Comments: 1 tab orally every 6 hours Acid Gone Antacid 95-358 mg/15 mL suspension 30 ml PO Q4HP acetaminophen 500 mg tablet 500 mg PO TID guaifenesin 100 mg/5 mL liquid 200 mg PO Q12HP metformin 1,000 mg tablet 1,000 mg PO BIDWMEAL pseudoephedrine HCl 60 mg tablet 60 mg PO Q12HP PRN (Reason: nasal congestion) Changed lisinopril 20 mg tablet 10 mg PO DAILY 30 Days Qty: 0 0RF Problem Reconciliation Problems Reviewed?: Yes Patient Discharge Instructions ACTIVITY: Continue current activity DIET: continue same diet Patient Instructions: DI for Hypoglycemia, DI for Sepsis -- Adult, DI for Hypotension Print Language: Lebanese Providers Primary Care Provider: Provider,Referral Admit Provider: Reggie Garcia Attending Provider: Reggie Garcia
[2024-10-26 12:00] VITALS: BP 107/54; PULSE 96; RESP 18; TEMP 36.8; O2SAT 94
[2024-10-26] MEDS: LEVOFLOXACIN/D5W 750 MG/150 ML 750 MG/150 ML PIGGYBACK 100 MG IV (12:05)
[2024-10-26 12:23] LABS: POC Glucose,Bedside 180 (70-110)
[2024-10-26] MEDS: BUMETANIDE 1MG/4ML VIAL 1 MG IV (12:23)
--- NOTE | 2024-10-26 12:43 | PC.NURSE ---
Called [facility] to give report on pt, nurse stated she was busy but will call back.
--- NOTE | 2024-10-26 14:04 | PC.NURSE ---
called Report to Magdalena at [place]
[2024-10-26 14:23] LABS: Hemoglobin A1C 8.1 % (4.0-6.0)
== END 2024-10-26 14:04 ==
LOC: ER 09:03 → 2ND 13:47
PROVIDERS: Student in an Organized Health Care Education/Training Program; Admitting Provider Internal Medicine Adolescent Medicine; Emergency Provider Emergency Medicine; Visit Provider Internal Medicine Adolescent Medicine
DX: G93.41 Metabolic encephalopathy (principal); G54.6 Phantom limb syndrome with pain; E11.8 Type 2 diabetes mellitus with unspecified complications; N39.0 Urinary tract infection, site not specified; Z79.84 Long term (current) use of oral hypoglycemic drugs; Z79.899 Other long term (current) drug therapy; Z89.612 Acquired absence of left leg above knee; B96.20 Unspecified Escherichia coli [E. coli] as the cause of diseases classified elsewhere; B96.1 Klebsiella pneumoniae [K. pneumoniae] as the cause of diseases classified elsewhere
CPT/HCPCS: 36415; 51702; 70450; 71275; 75635; 80053; 80061; 81001; 82550; 82803; 82962; 83036; 83605; 83690; 83735; 83880; 84443; 85007; 85025; 85027; 86803; 87040; 87086; 87088; 87186; 87389; 87633; 87636; 93005; 93971; 94640; 94761; 99285; G0378; J0131; J1650; J1939; J1956; J2543; J3370; J7030; J7120; J7620; Q9967

== ENCOUNTER 2024-11-06 10:24 | Emergency (ER) | payer MEDICARE, MEDICAID, SELFPAY ==
[2024-11-06 10:26] VITALS: BP 98/64; PULSE 94; RESP 18; TEMP 36.6; O2SAT 94; BMI 43.9
[2024-11-06 10:41] VITALS: BP 98/64; PULSE 96; O2SAT 95
--- NOTE | 2024-11-06 10:41 | HMH.EDGENADL ---
Discharge Plan Disposition Patient Disposition: Xfer Short-Term Hosp Chief Complaint: Extremity Injury, Lower Prescriptions Prescriptions: No Action nitrofurantoin monohyd/m-cryst [Macrobid] 100 mg capsule 100 mg PO Q12H 7 Days Qty: 14 0RF Rx Instructions: must administer with a meal/food Saccharomyces boulardii [Florastor] 250 mg capsule 250 mg PO DAILY Qty: 90 3RF lactulose 10 gram/15 mL solution 20 g PO DAILYP PRN (Reason: bowel care) ondansetron HCl 4 mg tablet 4 mg PO Q6HP PRN (Reason: nausea and vomiting) aspirin 81 mg tablet,chewable 81 mg PO DAILY diclofenac sodium 50 mg tablet,delayed release (DR/EC) 50 mg PO DAILY famotidine 20 mg tablet 20 mg PO DAILY ferrous sulfate 325 mg (65 mg iron) tablet 325 mg PO DAILY omega 4-qsp-vve-fish oil [Fish Oil] 300-1,000 mg capsule 2 cap PO DAILY levothyroxine 88 mcg capsule 88 mcg PO DAILY magnesium oxide 500 mg capsule 500 mg PO DAILY sennosides-docusate sodium [Senexon-S] 8.6-50 mg tablet 2 tab-cap PO DAILY simvastatin 20 mg tablet 20 mg PO HS Tradjenta 5 mg tablet 5 mg PO DAILY Qty: 90 3RF pregabalin [Lyrica] 150 mg capsule 150 mg PO .COMPLEX 30 Days Qty: 120 5RF Rx Instructions: 1 tablet in AM , 1 tablet at noon, 2 tablets at HS Jardiance 25 mg tablet 25 mg PO DAILY Qty: 90 3RF fexofenadine [Allergy Relief (fexofenadine)] 60 mg tablet 60 mg PO DAILY Qty: 90 3RF insulin glargine [Lantus Solostar U-100 Insulin] 100 unit/mL (3 mL) insulin pen 10 unit SQ HS Qty: 15 11RF multivitamin Tablet 1 tab PO DAILY Qty: 90 3RF hydrocodone-acetaminophen 5-325 mg tablet 1 tab PO Q6H Patient Comments: 1 tab orally every 6 hours Acid Gone Antacid 95-358 mg/15 mL suspension 30 ml PO Q4HP acetaminophen 500 mg tablet 500 mg PO TID guaifenesin 100 mg/5 mL liquid 200 mg PO Q12HP metformin 1,000 mg tablet 1,000 mg PO BIDWMEAL pseudoephedrine HCl 60 mg tablet 60 mg PO Q12HP PRN (Reason: nasal congestion) levofloxacin 750 mg tablet 750 mg PO Q48H 4 Days Qty: 2 0RF Rx Instructions: first dose due 10/28/24 bumetanide 0.5 mg tablet 0.5 mg PO DAILY Qty: 30 0RF lisinopril 20 mg tablet 10 mg PO DAILY 30 Days Qty: 0 0RF fluconazole [Diflucan] 100 mg tablet 100 mg PO DAILY 9 Days Qty: 9 0RF Referrals Follow up/Referrals: Ryan Eli MD [Primary Care Provider] - See instructions Clinical Impressions Clinical Impression: Desquamated skin, Soft tissue infection Print Language Print Language: Bulgarian Discharge ED Provider: Phil Marrero General Adult HPI General Chief complaint: Extremity Injury, Lower Stated complaint: wound on right heel, rash on right leg Time Seen by Provider: 11/06/24 10:27 History of Present Illness HPI narrative: Patient is a 74-year-old with past medical history of left lower extremity AKA, insulin-dependent type 2 diabetes, hypertension, recent urinary tract infection who presents emergency department for evaluation of right lower extremity erythema and swelling. Onset of her lower extremity swelling erythema was acute over the last 48 hours, she normally has no discoloration or significant swelling of her right lower extremity and is largely wheelchair-bound at baseline. Patient is pleasant however she is a relatively poor historian. Review of discharge summary from the of this month shows the patient did have right lower extremity erythema that was very mild and scattered and the leg was mildly edematous for which Bumex was initiated. Ultrasound was obtained at that time which showed no DVT. Patient denies trauma, no other acute complaints at this time. Related Data Home Medications ?Medication ?Instructions ?Recorded ?Confirmed aspirin 81 mg chewable tablet 81 mg PO DAILY 11/10/23 10/31/24 diclofenac sodium 50 mg 50 mg PO DAILY 11/10/23 10/31/24 tablet,delayed release famotidine 20 mg tablet 20 mg PO DAILY 11/10/23 10/31/24 ferrous sulfate 325 mg (65 mg 325 mg PO DAILY 11/10/23 10/31/24 iron) tablet lactulose 10 gram/15 mL oral 20 g PO DAILYP PRN bowel care 11/10/23 10/31/24 solution ondansetron HCl 4 mg tablet 4 mg PO Q6HP PRN nausea and 11/10/23 10/31/24 vomiting levothyroxine 88 mcg capsule 88 mcg PO DAILY 11/11/23 10/31/24 magnesium oxide 500 mg capsule 500 mg PO DAILY 11/11/23 10/31/24 omega 9-rpt-abg-fish oil 300 2 cap PO DAILY 11/11/23 10/31/24 mg-1,000 mg capsule (Fish Oil) sennosides 8.6 mg-docusate sodium 2 tab-cap PO DAILY 11/11/23 10/31/24 50 mg tablet (Senexon-S) simvastatin 20 mg tablet 20 mg PO HS 11/11/23 10/31/24 acetaminophen 500 mg tablet 500 mg PO TID 10/26/24 10/31/24 aluminum hydrox-magnesium carb 95 30 ml PO Q4HP Heartburn 10/26/24 10/31/24 mg-358 mg/15 mL oral suspension (Acid Gone Antacid) guaifenesin 100 mg/5 mL oral liquid 200 mg PO Q12HP Cough 10/26/24 10/31/24 hydrocodone 5 mg-acetaminophen 325 1 tab PO Q6H 10/26/24 10/31/24 mg tablet metformin 1,000 mg tablet 1,000 mg PO BIDWMEAL 10/26/24 10/31/24 pseudoephedrine HCl 60 mg tablet 60 mg PO Q12HP PRN nasal congestion 10/26/24 10/31/24 Previous Rx's ?Medication ?Instructions ?Recorded linagliptin 5 mg tablet (Tradjenta) 5 mg PO DAILY #90 tabs 04/03/24 pregabalin 150 mg capsule (Lyrica) 150 mg PO .COMPLEX 30 days #120 06/12/24 caps empagliflozin 25 mg tablet 25 mg PO DAILY #90 tabs 06/19/24 (Jardiance) fexofenadine 60 mg tablet (Allergy 60 mg PO DAILY #90 tabs 06/26/24 Relief (fexofenadine)) insulin glargine 100 unit/mL (3 10 unit (0.1 mL) SQ HS #15 mL 09/18/24 mL) subcutaneous pen (Lantus Solostar U-100 Insulin) multivitamin 1 tab PO DAILY #90 tabs 09/18/24 bumetanide 0.5 mg tablet 0.5 mg PO DAILY #30 tabs 10/26/24 fluconazole 100 mg tablet 100 mg PO DAILY 9 days #9 tabs 10/26/24 (Diflucan) levofloxacin 750 mg tablet 750 mg PO Q48H 4 days #2 tabs 10/26/24 lisinopril 20 mg tablet 10 mg (1/2 x 20 mg) PO DAILY 30 10/26/24 days #0 tabs Saccharomyces boulardii 250 mg 250 mg PO DAILY #90 caps 10/30/24 capsule (Florastor) nitrofurantoin 100 mg PO Q12H 7 days #14 caps 10/30/24 monohydrate/macrocrystals 100 mg capsule (Macrobid) Allergies Allergy/AdvReac Type Severity Reaction Status Date / Time ceftriaxone (From Rocephin) Allergy Hives Verified 10/31/24 16:16 sulfamethoxazole (From Allergy Unknown Verified 10/31/24 16:16 Bactrim) allergy reaction trimethoprim (From Bactrim) Allergy Unknown Verified 10/31/24 16:16 allergy reaction PFSH PFSH Disclaimer: The information contained in this section may have been updated after the patient was seen, as this information can be updated by other users. 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 ischemic attack (TIA), and cerebral infarction without residual deficits Edema, unspecified Gastro-esophageal reflux disease without esophagitis Polyneuropathy, unspecified Hypomagnesemia Hyperlipidemia, unspecified Hypothyroidism, unspecified Anemia, unspecified Type 2 diabetes mellitus with unspecified complications Family History Other No significant family history Social History Smoking Status: Unknown if ever smoked alcohol intake: former current occupational status: disabled Travel in the last 8 weeks: None Have you lived/traveled outside [place] in past 30 days?: No Contact w/someone who lives/traveled outside [place] past 30 days?: No Exposure to someone with infectious disease in past 14 days?: No Do you have a fever (greater than 100.4 F or 38 C)?: No Have you tested positive for COVID-19: No Exposed to someone with COVID-19 in past 14 days?: No Do you have a sore throat?: No Do you have a cough?: No Do you have any weakness?: No Do you have any diarrhea?: No Are you experiencing any unusual bleeding?: No Do you have any muscle aches/pain?: No Do you have any abdominal pain?: No Are you experiencing loss of taste or smell?: No Other Medical History Have you received the Flu Vaccine for this season: No Have you received the Pneumonia Vaccine: Yes (06/26/15, 03/22/17) ROS Obtained: Yes Systems reviewed as appropriate & no additional complaints except as documented Physical Exam General General appearance: alert and in no apparent distress Head Head exam: atraumatic and normocephalic Eye Eye exam: Present PERRL ENT ENT exam: Present mucous membranes moist Neck Neck exam: Present normal inspection Chest Chest inspection: Present normal inspection and symmetric chest wall rise Respiratory Respiratory exam: Present normal lung sounds bilaterally; Absent respiratory distress Cardiovascular Cardiovascular exam: Present regular rate and normal rhythm Abdominal Exam Abdominal exam: Present soft; Absent tenderness Extremities Exam Extremities exam: Present other (Left lower extremity AKA. Right lower extremity diffusely erythematous distal to the knee, with medial erythema extending up the thigh, severely edematous throughout the lower extremity. ); Absent normal inspection (There is black discoloration scattered of the right foot as well as confluent desquamation extending from the right ankle up the calf.) Neurological Exam Neurological exam: Present alert Psychiatric Psychiatric exam: Present normal affect Skin Skin exam: Present warm and dry Medical Decision Making Medical Records Screening: Per USPSTF and CDC recommendations, given the prevalence of disease in our region, it is our hospital?s policy to screen for HIV and viral Hepatitis for all patients aged 18 and over and those with ongoing risk factors. William Inquiry Pt receiving controlled substance: No Vital Signs: 11/06/24 10:26 11/06/24 10:41 11/06/24 11:00 Temperature 97.8 F Temperature Source Oral Pulse Rate 96 H 94 H Pulse Rate [Left Radial] 94 H Respiratory Rate 18 Blood Pressure 98/64 L 108/64 L Blood Pressure [Right Arm] 98/64 L Blood Pressure Mean Blood Pressure Mean [Right Arm] 75 02 Sat by Pulse Oximetry 94 L 95 96 Oxygen Delivery Method Room Air Room Air Room Air 11/06/24 12:01 11/06/24 12:32 Temperature Temperature Source Pulse Rate 94 H 94 H Pulse Rate [Left Radial] Respiratory Rate Blood Pressure 112/75 126/80 Blood Pressure [Right Arm] Blood Pressure Mean 84 Blood Pressure Mean [Right Arm] 02 Sat by Pulse Oximetry 97 95 Oxygen Delivery Method Room Air Room Air Lab Data Lab Results 11/06/24 10:45: WBC 11.1 H, RBC 4.50, Hgb 13.3, Hct 41.7, MCV 92.7, MCH 29.6, MCHC 31.9, RDW 15.5, Plt Count 353, MPV 10.9 H, Neut % (Auto) 73.3, Lymph % (Auto) 15.0, Cataño % (Auto) 7.6, Eos % (Auto) 2.6, Baso % (Auto) 0.6, Neut # (Auto) 8.1 H, Lymph # (Auto) 1.7, Cataño # (Auto) 0.8, Eos # (Auto) 0.3, Baso # (Auto) 0.1, PT 11.0, INR 0.98, Sodium 138, Potassium 5.8 H, Chloride 103, Carbon Dioxide 31 H, Anion Gap 9.8, BUN 33 H, Creatinine 1.00, Estimated Creat Clear 35, Estimated GFR 54 L, Est GFR ( Amer) 66, Glucose 185 H, Calcium 8.6, Total Bilirubin 0.6, AST 40 H, ALT 25, Alkaline Phosphatase 103, C-Reactive Protein 216.6 H, Total Protein 7.6 D, Albumin 3.5, Globulin 4.1 H, Albumin/Globulin Ratio 0.9 L 11/06/24 10:45 11/06/24 10:45 Orders (Tests/Meds): ED MEDICATIONS Generic Name Dose Route Start Last Admin Trade Name Freq PRN Reason Stop Dose Admin Vancomycin/PEG/NADA/Lysine/Water 1.75 gm in 350 mls @ 175 mls/hr 11/06/24 11:00 11/06/24 11:59 Vancomycin 1.75gm/350ml (Peg) Premix IV 11/06/24 12:59 175 mls/hr ONCE ONE Administration Miscellaneous 1 each 11/06/24 10:45 11/06/24 11:00 Vancomycin Consult Request NOTAPPLIC 12/06/24 10:44 1 each CONSULT PHARMACY ZOE Administration Discontinued Medications Generic Name Dose Route Start Last Admin Trade Name Marce PRN Reason Stop Dose Admin Piperacillin Sod/Tazobactam 100 mls @ 200 mls/hr 11/06/24 10:40 11/06/24 11:38 Sod 4.5 gm/ Sodium Chloride IV 11/06/24 11:09 Not Given ONCE ONE Clindamycin Phosphate 900 mg in 50 mls @ 100 mls/hr 11/06/24 10:41 11/06/24 12:19 Clindamycin 900mg/50ml D5w Premix IV 11/06/24 11:10 100 mls/hr ONCE ONE Administration Piperacillin Sod/Tazobactam 100 mls @ 200 mls/hr 11/06/24 11:06 11/06/24 11:59 Sod 4.5 gm/ Sodium Chloride IV 11/06/24 11:35 200 mls/hr ONCE ONE Administration Iopamidol 120 ml 11/06/24 11:29 11/06/24 11:30 Iopamidol-370 (76%);100ml Bottle IV 11/06/24 11:30 120 ml ONCE ONE Administration Sodium Chloride 10 ml 11/06/24 11:29 11/06/24 11:30 Sodium Chloride 0.9% 10ml Syr (Rad Only) IV 11/06/24 11:30 10 ml ONCE ONE Administration Sodium Chloride 50 ml 11/06/24 11:29 11/06/24 11:30 0.9 % Sodium Chloride 50 Ml Vial IV 11/06/24 11:30 50 ml ONCE ONE Administration ORDERS Category Date Time Status CT angio abdomen/femoral Stat Cat Scan 11/06/24 10:53 Completed Fibula/tibia XR right 2 views [XR tibia fibula RT 2V] Exams 11/06/24 10:44 Completed Stat POCUS Point of Care (ER Only) Stat Exams 11/06/24 10:37 Completed XR foot RT 2V Stat Exams 11/06/24 10:45 Completed CBC w/Auto Diff [Complete Blood Count Auto Diff] Stat Lab 11/06/24 10:45 Completed CMP [Comprehensive Metabolic Panel] Stat Lab 11/06/24 10:45 Completed CRP [C-Reactive Protein] Stat Lab 11/06/24 10:45 Completed PT INR [Prothrombin Time INR] Stat Lab 11/06/24 10:45 Completed Blood Culture Stat Micro 11/06/24 10:45 Received Wound Culture and Gram Stain Stat Micro 11/06/24 12:22 Received ECG Data Tracing #1: Independently interpreted by me rate is 91, rhythm is regular, axis is normal, no ST elevation in anatomical contiguous leads, QTc 358, no peaked T waves, no long QTc. Medical Decision Narrative: In summary patient is 74-year-old female past medical history described above who presents emergency department for evaluation of right lower extremity swelling and erythema. Patient is hemodynamically stable nontoxic-appearing upon arrival afebrile. Differential includes necrotizing soft tissue infection, phlegmasia cerulea dolens, among others. IV access will be obtained and patient will be started on broad-spectrum antibiotics after cultures were initiated. Aggressive volume resuscitation with sepsis bolus was considered however given patient appears hypervolemic and is not in shock will be deferred at this time. [id number] ultrasound will be conducted by me looking for large proximal DVT, given the patient has normal creatinine at baseline CT right lower extremity with contrast will help evaluate for necrotizing soft tissue infection versus fluid collection versus cellulitis. Initial workup reviewed by me, leukocytosis of 11.1, no anemia, no thrombocytopenia. Potassium 5.8 for which EKG will be obtained however does not need emergent action at this time, glucose 185 without elevated anion gap, normal CRP is extremely elevated at 216.6 fortunately patient is already covered with antibiotics as my concern for infection is high. Goeqi-[id number]-[id number] ultrasound was performed at bedside which did not show large proximal DVT. X-ray informally interpreted by me, no obvious soft tissue gas. CTA formally read no acute pathology right lower extremity from an arterial standpoint. The venous phase that I requested has been conducted but it does not appear that they comment on it at all I will attempt to reach radiology for them to add to the read. Given my concern for desquamating soft tissue infection and need for higher level care the case was discussed with [facility] Dr. Farrell who graciously excepted patient for transfer for continued evaluation at this time. Procedure: Procedure performed was [id number] ultrasound, procedure performed by Phil Marrero. Using the linear probe sequential compression from the proximal thigh down to the knee was conducted which shows compressible femoral vein without evidence of DVT. There is significant cobblestoning over the areas of redness without obvious gas artifact. Patient tolerated procedure well. There were no immediate complications. Critical Care Critical Care Time Critical Care Time: Yes Attestation: On 11/06/24, the high probability of a clinically significant, sudden or life threatening deterioration of the following system(s) required my full and direct attention, intervention and personal management. The time I documented below is in addition to time spent performing reported procedures but includes the following listed in this critical care notation. Total Time Total Critical Care Time: 45
--- NOTE | 2024-11-06 10:44 | XR_ITS ---
FINAL REPORT CLINICAL HISTORY: severe soft tissue swelling screen for gas NSTI FINDINGS: Right tibia fibula Two views were obtained. There is no fracture or dislocation. The joint spaces appear normal. No soft tissue abnormality is identified. There is no evidence of bone destruction. No foreign body or gas is seen in the soft tissues. IMPRESSION: No acute process. Reviewed, Interpreted and Dictated by Luis Fernando Ross MD Transcribed by Brooke Eid Authenticated and [facility]
--- NOTE | 2024-11-06 10:45 | XR_ITS ---
FINAL REPORT CLINICAL HISTORY: severe swelling erythema no trauma FINDINGS: Right foot Three views were obtained. There is no fracture or dislocation. The joint spaces appear normal. The digits are not well-visualized. The bones are osteopenic. The hindfoot is poorly visualized on the frontal images. No bone destruction is identified. There is soft tissue swelling of the midfoot. No gas is seen in the soft tissues. IMPRESSION: No bone destruction or gas in the soft tissues. Reviewed, Interpreted and Dictated by Luis Fernando Ross MD Transcribed by Brooke Eid Authenticated and [facility]
--- NOTE | 2024-11-06 10:53 | CT_ITS ---
FINAL REPORT TECHNIQUE: Thin section axial CT with IV contrast supplemented with 3D MIP reconstruction under CT Angiogram protocol. This study was performed with techniques to keep radiation doses as low as reasonably achievable, (ALARA). Individualized dose reduction techniques using automated exposure control or adjustment of mA and/or kV according to the patient''s size were employed. CLINICAL HISTORY: medial erythema and swelling FINDINGS: CT ABDOMEN, CT PELVIS, CTA ABDOMEN, CTA PELVIS AND CTA LOWER EXTREMITY RUNOFF CT ANGIOGRAM ABDOMEN AND PELVIS: There is scattered mild plaque disease of the aorta. Central mesenteric and renal arteries are widely patent. Iliac vessels show no significant stenosis, dissection or aneurysm. CTA RIGHT LOWER EXTREMITY: The common femoral artery and SFA are widely patent. There is 2 vessel runoff of the proximal calf however dense calcified plaque disease limits assessment of the posterior tibial and peroneal arteries. Runoff at the level of the ankle and feet is not well-evaluated due to calcified plaque disease. CTA LEFT LOWER EXTREMITY: There is surgical changes of hhmxh-bhn-trah amputation. The common femoral artery is widely patent. The profunda circulation is intact. There is long segment chronic occlusion of the SFA. Abdomen: Solid abdominal organs are grossly unremarkable. There is cholelithiasis without acute gallbladder disease. No bowel obstruction is seen. There is no free fluid or free air. Pelvis: There are surgical changes to the cecum. Pelvic floor prolapse is identified. The uterus is normal. Pelvic bowel loops are unremarkable. No mass or fluid collection is seen. IMPRESSION: No significant aortoiliac inflow disease. Right lower extremity runoff well-maintained to the proximal calf. The distal Circulation is difficult to assess due to heavy calcified plaque disease. Chronic left SFA occlusion. Incidental cholelithiasis. Reviewed, Interpreted and Dictated by Luis Fernando Ross MD Transcribed by Brooke Eid Authenticated and [facility]
[2024-11-06 11:00] VITALS: BP 108/64; PULSE 94; O2SAT 96
[2024-11-06] MEDS: VANCOMYCIN CONSULT REQUEST 1 EACH NOTAPPLIC (11:00)
[2024-11-06 11:10] LABS: Albumin Level 3.5 g/dl (3.5-5.0); Chloride 103 mmol/L (98-107)
[2024-11-06 11:11] LABS: Potassium 5.8 mmoL/L (3.5-5.1); Sodium 138 mmol/L (136-145)
[2024-11-06 11:13] LABS: Alanine Aminotransferase 25 U/L (12-78); Albumin/Globulin Ratio 0.9 (1.1-1.8); Alkaline Phosphatase 103 U/L (38-126); Anion Gap 9.8 mEq/L (5-15); Aspartate Amino Transferase 40 U/L (14-36); Bilirubin,Total 0.6 mg/dl (0.2-1.3); Blood Urea Nitrogen 33 mg/dl (7-17); Carbon Dioxide 31 mmol/L (22.0-30.0); Creatinine Clearance Estimated 35 mL/min (50-200); Estimated Glomerular Filt Rate 54 ml/min (>60); GFR (African American) 66 ML/MIN (>60); Globulin 4.1 g/dL (1.3-3.2); Total Protein,Serum 7.6 g/dl (6.3-8.2)
[2024-11-06 11:14] LABS: Basophils % 0.6 % (0.1-2.0); Calcium 8.6 mg/dl (8.4-10.2); Eosinophils % 2.6 % (0.1-12.0); Glucose 185 mg/dl (74-100); Hematocrit 41.7 % (37.0-47.0); Hemoglobin 13.3 g/dL (12.2-16.2); Mean Corpuscular HGB Conc 31.9 g/dL (31.8-35.4); Mean Corpuscular Hemoglobin 29.6 pg (27.0-31.2); Mean Corpuscular Volume 92.7 fl (81-99); Mean Platelet Volume 10.9 fl (7.4-10.4); Monocytes % 7.6 % (1.7-9.3); Neutrophils % 73.3 % (37.0-80.0); Platelet Count 353 K/mm3 (142-424); Red Cell Distribution Width 15.5 % (11.5-17.5); White Blood Count 11.1 K/mm3 (4.8-10.8)
[2024-11-06 11:15] LABS: Basophils # 0.1 K/mm3 (0-0.2); Eosinophils # 0.3 K/mm3 (0.0-0.4); Lymphocytes # 1.7 K/mm3 (0.7-4.5); Monocytes # 0.8 K/mm3 (0.1-1.0); Neutrophils # 8.1 K/mm3 (1.8-7.8)
[2024-11-06 11:19] LABS: C-Reactive Protein 216.6 mg/L (0-4)
[2024-11-06] MEDS: 0.9 % SODIUM CHLORIDE 50 ML VIAL IV (11:30)
[2024-11-06] MEDS: SODIUM CHLORIDE 0.9% 10ML SYR (RAD ONLY) 10 ML IV (11:30)
[2024-11-06] MEDS: IOPAMIDOL-370 (76%);100ML BOTTLE 120 ML IV (11:30)
[2024-11-06 11:57] LABS: INR 0.98 (0.9-1.1)
[2024-11-06] MEDS: PIPERACILLIN/TAZO 4.5 GM in 0.9 % SODIUM CHLORIDE 100 ML IV (11:59)
[2024-11-06] MEDS: VANCOMYCIN/WATER FOR INJ (PEG) 1.75 GM/350 ML PIGGYBACK IV (11:59)
[2024-11-06 12:01] VITALS: BP 112/75; PULSE 94; O2SAT 97
--- NOTE | 2024-11-06 12:17 | ECG_ITS ---
APPROVED REPORT Exam: Resting ECG HR:91 bpm ECG Measurements Heart Rate 91 AXES CO 182 P 59 QRSd 69 QRS 32 QT 309 T 78 QTc 358 Conclusion SINUS RHYTHM NONSPECIFIC T-WAVE ABNORMALITY BORDERLINE ECG Electronically signed by : CHAYITO HERNANDEZ, 11/06/2024 15:36:35
[2024-11-06] MEDS: CLINDAMYCIN PHOSPHATE/D5W 900 MG/50 ML PIGGYBACK 100 MG IV (12:19)
[2024-11-06 12:32] VITALS: BP 126/80; PULSE 94; O2SAT 95
--- NOTE | 2024-11-06 12:44 | PC.NURSE ---
Called [facility] per Dr. Marrero for possible transfer to . stated that they would give us a call back.
--- NOTE | 2024-11-06 13:21 | PC.NURSE ---
CALLED REPORT TO [facility]SE AT , ANSWERED ALL QUESTIONS AND THEN [facility] STAFF AND PATIENT FAMILY MADE AWARE OF PATIENT PENDING TRANSFER, EMS NOTIFIED OF TRANSFER WELL
[2024-11-06 13:23] VITALS: BP 124/72; PULSE 93; RESP 20; TEMP 36.7; O2SAT 95
--- NOTE | 2024-11-11 08:58 | PC.NURSE ---
CULTURE RESULTS FAXED TO [facility] [phone]
== END 2024-11-06 13:45 | disposition short-term general hospital (02) ==
PROVIDERS: Emergency Provider Emergency Medicine; PCP Family Medicine
DX: L08.9 Local infection of the skin and subcutaneous tissue, unspecified (principal); R23.4 Changes in skin texture; R22.41 Localized swelling, mass and lump, right lower limb; E87.5 Hyperkalemia
CPT/HCPCS: 73590; 73620; 73630; 75635; 80053; 85025; 85610; 86140; 87040; 87070; 87077; 87186; 87205; 93005; 96365; 96366; 96367; 99291; J0736; J2543; J3372; Q9967

== ENCOUNTER 2024-11-21 15:18 | Emergency (ER) | payer MEDICARE, MEDICAID, SELFPAY ==
[2024-11-21] VITALS (8 sets, daily range): BP systolic 83–121; BP diastolic 53–78; PULSE 66–82; RESP 19–20; TEMP 36.8; O2SAT 86–98; BMI 36.3
--- NOTE | 2024-11-21 15:27 | ED_ITS ---
Discharge Plan Disposition Patient Disposition: Home, Self-Care Condition: Good Prescriptions Prescriptions: No Action bacitracin 500 unit/gram ointment 1 applic topical BID duloxetine 20 mg capsule,delayed release(DR/EC) 20 mg PO DAILY levothyroxine 100 mcg tablet 100 mcg PO DAILY magnesium oxide 400 mg (241.3 mg magnesium) tablet 400 mg PO DAILY Zosyn in dextrose (iso-osm) 3.375 gram/50 mL piggyback 3.375 g IV Q6H lactulose 10 gram/15 mL solution 20 g PO DAILYP PRN (Reason: bowel care) ondansetron HCl 4 mg tablet 4 mg PO Q6HP PRN (Reason: nausea and vomiting) aspirin 81 mg tablet,chewable 81 mg PO DAILY diclofenac sodium 50 mg tablet,delayed release (DR/EC) 50 mg PO DAILY famotidine 20 mg tablet 20 mg PO DAILY ferrous sulfate 325 mg (65 mg iron) tablet 325 mg PO DAILY sennosides-docusate sodium [Senexon-S] 8.6-50 mg tablet 2 tab-cap PO DAILY simvastatin 20 mg tablet 20 mg PO HS Tradjenta 5 mg tablet 5 mg PO DAILY Qty: 90 3RF pregabalin [Lyrica] 150 mg capsule 150 mg PO .COMPLEX 30 Days Qty: 120 5RF Rx Instructions: 1 tablet in AM , 1 tablet at noon, 2 tablets at HS Jardiance 25 mg tablet 25 mg PO DAILY Qty: 90 3RF fexofenadine [Allergy Relief (fexofenadine)] 60 mg tablet 60 mg PO DAILY Qty: 90 3RF multivitamin Tablet 1 tab PO DAILY Qty: 90 3RF Acid Gone Antacid 95-358 mg/15 mL suspension 30 ml PO Q4HP metformin 1,000 mg tablet 1,000 mg PO BIDWMEAL pseudoephedrine HCl 60 mg tablet 60 mg PO Q12HP PRN (Reason: nasal congestion) bumetanide 0.5 mg tablet 0.5 mg PO DAILY Qty: 30 0RF lisinopril 20 mg tablet 10 mg PO DAILY 30 Days Qty: 0 0RF acetaminophen 500 mg tablet 1,000 mg PO Q6H PRN guaifenesin 100 mg/5 mL liquid 200 mg PO TID PRN (Reason: Cough) hydrocodone-acetaminophen 5-325 mg tablet 1 tab PO Q6H PRN Patient Comments: 1 tab orally every 6 hours Activity Restrictions/Add. Instructions Additional Instructions/Restrictions: Please return to the emergency department for any worsening signs or symptoms, continue all of your medication/IV antibiotics through your PICC line/midline as prescribed. Follow-up with your family doctor and other doctors as scheduled. Clinical Impressions Clinical Impression: Acquired absence of left leg above knee, PIC line (peripherally inserted central catheter) flush, Soft tissue infection Print Language Print Language: Occitan Discharge ED Provider: Nathen Etienne General Adult HPI <JORY Bettencourt - Last Filed: 11/21/24 15:53> General Chief complaint: Recheck/Abnormal Lab/Rx Stated complaint: PICC line leaking Time Seen by Provider: 11/21/24 15:27 Mode of Arrival: EMS Source of Information: Patient Limitations: No Limitations History of Present Illness HPI narrative: 74-year-old female who presents to the emergency department via EMS for chief complaint of PICC line leaking , patient had a midline placed approximately 1 week ago at [facility] for where she was discharged for a right lower extremity cellulitis, she has been on IV Zosyn at the long-term. Noticed some leaking of her midline today at the long-term facility, thus patient was sent here to the emergency department for further evaluation/change/interrogation of the patient's midline. Patient denies any fever chills chest pain shortness of breath nausea vomiting constipation diarrhea, no abdominal pain, no urinary type symptomatology. Patient complains of some pain in her right foot at times, but she states is better than 1 week ago. The infection started all the way up her leg around her knee, she states the infection/pain is only localized to her foot now. Other past medical history consistent with type 2 diabetes with polyneuropathy, left AKA, history of TIA/CVA, hypertension, hyperlipidemia, hypothyroidism, obesity, supplemental oxygen therapy nasal cannula as needed. As any substance use initial triage vitals are notable for 94% on room air, patient uses submental oxygen therapy as needed, when I first entered the room the patient was on 4 L nasal cannula saturation was 100% on room air. Onset (ago): hour(s) Related Data Home Medications ?Medication ?Instructions ?Recorded ?Confirmed aspirin 81 mg chewable tablet 81 mg PO DAILY 11/10/23 11/21/24 diclofenac sodium 50 mg 50 mg PO DAILY 11/10/23 11/21/24 tablet,delayed release famotidine 20 mg tablet 20 mg PO DAILY 11/10/23 11/21/24 ferrous sulfate 325 mg (65 mg 325 mg PO DAILY 11/10/23 11/21/24 iron) tablet lactulose 10 gram/15 mL oral 20 g PO DAILYP PRN bowel care 11/10/23 11/21/24 solution ondansetron HCl 4 mg tablet 4 mg PO Q6HP PRN nausea and 11/10/23 11/21/24 vomiting sennosides 8.6 mg-docusate sodium 2 tab-cap PO DAILY 11/11/23 11/21/24 50 mg tablet (Senexon-S) simvastatin 20 mg tablet 20 mg PO HS 11/11/23 11/21/24 aluminum hydrox-magnesium carb 95 30 ml PO Q4HP Heartburn 10/26/24 11/21/24 mg-358 mg/15 mL oral suspension (Acid Gone Antacid) metformin 1,000 mg tablet 1,000 mg PO BIDWMEAL 10/26/24 11/21/24 pseudoephedrine HCl 60 mg tablet 60 mg PO Q12HP PRN nasal congestion 10/26/24 11/21/24 acetaminophen 500 mg tablet 1,000 mg PO Q6H PRN 11/21/24 11/21/24 bacitracin 500 unit/gram topical 1 applic topical BID lower leg 11/21/24 11/21/24 ointment duloxetine 20 mg capsule,delayed 20 mg PO DAILY 11/21/24 11/21/24 release guaifenesin 100 mg/5 mL oral liquid 200 mg PO TID PRN Cough 11/21/24 11/21/24 hydrocodone 5 mg-acetaminophen 325 1 tab PO Q6H PRN 11/21/24 11/21/24 mg tablet levothyroxine 100 mcg tablet 100 mcg PO DAILY 11/21/24 11/21/24 magnesium oxide 400 mg (241.3 mg 400 mg PO DAILY 11/21/24 11/21/24 magnesium) tablet piperacillin-tazobactam 3.375 3.375 g IV Q6H 11/21/24 11/21/24 gram/50 mL dextrose(iso-os) IV piggyback (Zosyn) Previous Rx's ?Medication ?Instructions ?Recorded linagliptin 5 mg tablet (Tradjenta) 5 mg PO DAILY #90 tabs 04/03/24 pregabalin 150 mg capsule (Lyrica) 150 mg PO .COMPLEX 30 days #120 06/12/24 caps empagliflozin 25 mg tablet 25 mg PO DAILY #90 tabs 06/19/24 (Jardiance) fexofenadine 60 mg tablet (Allergy 60 mg PO DAILY #90 tabs 06/26/24 Relief (fexofenadine)) multivitamin 1 tab PO DAILY #90 tabs 09/18/24 bumetanide 0.5 mg tablet 0.5 mg PO DAILY #30 tabs 10/26/24 lisinopril 20 mg tablet 10 mg (1/2 x 20 mg) PO DAILY 30 10/26/24 days #0 tabs Allergies Allergy/AdvReac Type Severity Reaction Status Date / Time ceftriaxone (From Rocephin) Allergy Hives Verified 11/21/24 13:20 sulfamethoxazole (From Allergy Unknown Verified 11/21/24 13:20 Bactrim) allergy reaction trimethoprim (From Bactrim) Allergy Unknown Verified 11/21/24 13:20 allergy reaction [facility] <JORY Bettencourt - Last Filed: 11/21/24 15:53> [facility] Disclaimer: The information contained in this section may have been updated after the patient was seen, as this information can be updated by other users. Medical History Edema, lower extremity Colon cancer screening Dysphagia Phantom limb pain Obesity, unspecified Essential (primary) hypertension Acquired absence of left leg above knee Personal history of transient ischemic attack (TIA), and cerebral infarction without residual deficits Edema, unspecified Gastro-esophageal reflux disease without esophagitis Polyneuropathy, unspecified Hypomagnesemia Hyperlipidemia, unspecified Hypothyroidism, unspecified Anemia, unspecified Type 2 diabetes mellitus with unspecified complications Family History Other No significant family history Social History Smoking Status: Unknown if ever smoked alcohol intake: former current occupational status: disabled Travel in the last 8 weeks: None Have you lived/traveled outside US in past 30 days?: No Contact w/someone who lives/traveled outside US past 30 days?: No Exposure to someone with infectious disease in past 14 days?: No Do you have a fever (greater than 100.4 F or 38 C)?: No Have you tested positive for COVID-19: No Exposed to someone with COVID-19 in past 14 days?: No Do you have a sore throat?: No Do you have a cough?: No Do you have any weakness?: No Do you have any diarrhea?: No Are you experiencing any unusual bleeding?: No Do you have any muscle aches/pain?: No Do you have any abdominal pain?: No Are you experiencing loss of taste or smell?: No Other Medical History Have you received the Flu Vaccine for this season: No Have you received the Pneumonia Vaccine: Yes (06/26/15, 03/22/17) <JORY Bettencourt - Last Filed: 11/21/24 15:53> ROS Obtained: Yes All systems reviewed & no additional complaints except as documented Physical Exam <JORY Bettencourt - Last Filed: 11/21/24 15:53> General General appearance: alert and in no apparent distress Head Head exam: atraumatic and normocephalic Eye Eye exam: Present PERRL and EOMI ENT ENT exam: Present mucous membranes moist Neck Neck exam: Present normal inspection Chest Chest inspection: Present normal inspection and symmetric chest wall rise Respiratory Respiratory exam: Present normal lung sounds bilaterally; Absent respiratory distress Cardiovascular Cardiovascular exam: Present regular rate and normal rhythm Abdominal Exam Abdominal exam: Present soft; Absent tenderness, guarding, rebound or rigidity Extremities Exam Extremities exam: Present normal inspection and other (There is some mild erythema of the patient's right lower extremity which goes along with her history, some desquamation of the skin, the does look improved from previous the patient's history she is currently on IV antibiotics with midline in place for this) Neurological Exam Neurological exam: Present alert and oriented X3 Psychiatric Psychiatric exam: Present normal affect Skin Skin exam: Present warm and dry Medical Decision Making <JORY Bettencourt - Last Filed: 11/21/24 15:53> Medical Records Medical records reviewed: Yes I reviewed the patient's medical records. Screening: Per USPSTF and CDC recommendations, given the prevalence of disease in our region, it is our hospital?s policy to screen for HIV and viral Hepatitis for all patients aged 18 and over and those with ongoing risk factors. William Inquiry Pt receiving controlled substance: No William was queried for this patient: No Vital Signs: 11/21/24 15:18 11/21/24 15:30 11/21/24 15:30 Temperature 98.2 F Temperature Source Oral Pulse Rate 66 77 Pulse Rate [Right] 82 Respiratory Rate 19 Blood Pressure 110/70 110/70 Blood Pressure [Left Arm] 121/75 Blood Pressure Mean [Left Arm] 90 Blood Pressure Source Blood Pressure Source [Left Arm] Automatic Cuff 02 Sat by Pulse Oximetry 96 98 98 Oxygen Delivery Method Nasal Cannula Oxygen Flow Rate (LPM) 2 11/21/24 15:55 11/21/24 16:01 11/21/24 16:26 Temperature 98.2 F Temperature Source Oral Pulse Rate 74 75 74 Pulse Rate [Right] Respiratory Rate 20 Blood Pressure 109/78 L 83/57 L 107/63 L Blood Pressure [Left Arm] Blood Pressure Mean [Left Arm] Blood Pressure Source Automatic Cuff Blood Pressure Source [Left Arm] 02 Sat by Pulse Oximetry 86 L 90 L Oxygen Delivery Method Room Air Oxygen Flow Rate (LPM) 11/21/24 16:30 11/21/24 16:58 11/21/24 17:00 Temperature Temperature Source Pulse Rate 80 77 78 Pulse Rate [Right] Respiratory Rate Blood Pressure 96/53 L 106/56 L 103/55 L Blood Pressure [Left Arm] Blood Pressure Mean [Left Arm] Blood Pressure Source Blood Pressure Source [Left Arm] 02 Sat by Pulse Oximetry 88 L 88 L 95 Oxygen Delivery Method Oxygen Flow Rate (LPM) Medical Decision Narrative: 74-year-old female presents the emergency department via EMS for a mid line malfunction/concern for mid line leaking, differential diagnose include not limited to PICC line/midline malfunction, catheter malplacement, superficial thrombo-phlebitis. I discussed patient case with attending physician Dr. Etienne Nurse was able to change the patient's midline dressing, patient's midline is flushing appropriately, no current leakage. Patient has no other acute complaints she is on IV antibiotics for right lower extremity infection, she is at the long-term and gets continuous wound care/care. Patient utilizes submental oxygen as needed, recommend follow-up with PCP/other providers as directed, return to the emergency department any worsening signs or symptoms. Patient voiced understand agree with current treatment plan/discharge plan. <Nathen Etienne MD - Last Filed: 11/21/24 23:21> Vital Signs: 11/21/24 15:18 11/21/24 15:30 11/21/24 15:30 Temperature 98.2 F Temperature Source Oral Pulse Rate 66 77 Pulse Rate [Right] 82 Respiratory Rate 19 Blood Pressure 110/70 110/70 Blood Pressure [Left Arm] 121/75 Blood Pressure Mean [Left Arm] 90 Blood Pressure Source Blood Pressure Source [Left Arm] Automatic Cuff 02 Sat by Pulse Oximetry 96 98 98 Oxygen Delivery Method Nasal Cannula Oxygen Flow Rate (LPM) 2 11/21/24 15:55 11/21/24 16:01 11/21/24 16:26 Temperature 98.2 F Temperature Source Oral Pulse Rate 74 75 74 Pulse Rate [Right] Respiratory Rate 20 Blood Pressure 109/78 L 83/57 L 107/63 L Blood Pressure [Left Arm] Blood Pressure Mean [Left Arm] Blood Pressure Source Automatic Cuff Blood Pressure Source [Left Arm] 02 Sat by Pulse Oximetry 86 L 90 L Oxygen Delivery Method Room Air Oxygen Flow Rate (LPM) 11/21/24 16:30 11/21/24 16:58 11/21/24 17:00 Temperature Temperature Source Pulse Rate 80 77 78 Pulse Rate [Right] Respiratory Rate Blood Pressure 96/53 L 106/56 L 103/55 L Blood Pressure [Left Arm] Blood Pressure Mean [Left Arm] Blood Pressure Source Blood Pressure Source [Left Arm] 02 Sat by Pulse Oximetry 88 L 88 L 95 Oxygen Delivery Method Oxygen Flow Rate (LPM) Medical Decision Narrative: 74-year-old female presents the emergency department via EMS for a mid line malfunction/concern for mid line leaking, differential diagnose include not limited to PICC line/midline malfunction, catheter malplacement, superficial thrombo-phlebitis. I discussed patient case with attending physician Dr. Etienne Nurse was able to change the patient's midline dressing, patient's midline is flushing appropriately, no current leakage. Patient has no other acute complaints she is on IV antibiotics for right lower extremity infection, she is at the long-term and gets continuous wound care/care. Patient utilizes submental oxygen as needed, recommend follow-up with PCP/other providers as directed, return to the emergency department any worsening signs or symptoms. Patient voiced understand agree with current treatment plan/discharge plan. I was consulted by the DIANNE, and we discussed the complexity of the problems being addressed.I approved the treatment and management plan for this patient?s care in the Emergency Department, thus performing a substantive portion of the medical decision making.Signed, Nathen Etienne MD Critical Care <JORY Bettencourt - Last Filed: 11/21/24 15:53> Critical Care Time Critical Care Time: No
--- NOTE | 2024-11-21 16:05 | PC.NURSE ---
Called report to Yanni [place] @ [facility]. Attempted to call EMS for transport back to SNF, no answer. Will attempt to call report
--- NOTE | 2024-11-21 16:32 | PC.NURSE ---
ant ems notified of transfer
== END 2024-11-21 17:59 | disposition home or self-care (01) ==
PROVIDERS: Emergency Provider Emergency Medicine; PCP Family Medicine
DX: L08.9 Local infection of the skin and subcutaneous tissue, unspecified (principal); Z89.612 Acquired absence of left leg above knee
CPT/HCPCS: 99283

== ENCOUNTER 2025-02-04 08:29 | Outpatient (CLI) | payer MEDICARE, MEDICAID, SELFPAY ==
[2025-02-04 08:51] LABS: Basophils # 0.1 K/mm3 (0-0.2); Basophils % 0.9 % (0.1-2.0); Eosinophils # 0.4 K/mm3 (0.0-0.4); Eosinophils % 7.1 % (0.1-12.0); Hematocrit 45.3 % (37.0-47.0); Hemoglobin 13.9 g/dL (12.2-16.2); Lymphocytes # 1.5 K/mm3 (0.7-4.5); Lymphocytes % 26.6 % (10-50); Mean Corpuscular HGB Conc 30.7 g/dL (31.8-35.4); Mean Corpuscular Hemoglobin 29.1 pg (27.0-31.2); Mean Platelet Volume 11.2 fl (7.4-10.4); Monocytes # 0.6 K/mm3 (0.1-1.0); Monocytes % 9.9 % (1.7-9.3); Neutrophils # 3.1 K/mm3 (1.8-7.8); Neutrophils % 55.1 % (37.0-80.0); Platelet Count 292 K/mm3 (142-424); Red Blood Count 4.77 M/mm3 (4.20-5.40); Red Cell Distribution Width 16.3 % (11.5-17.5); White Blood Count 5.6 K/mm3 (4.8-10.8)
[2025-02-04 08:58] LABS: Alanine Aminotransferase 19 U/L (12-78); Albumin/Globulin Ratio 1.1 (1.1-1.8); Alkaline Phosphatase 84 U/L (38-126); Anion Gap 12.3 mEq/L (5-15); Aspartate Amino Transferase 30 U/L (14-36); Bilirubin,Total 0.3 mg/dl (0.2-1.3); Blood Urea Nitrogen 45 mg/dl (7-17); Calcium 9.8 mg/dl (8.4-10.2); Carbon Dioxide 30 mmol/L (22.0-30.0); Chloride 104 mmol/L (98-107); Estimated Glomerular Filt Rate 54 ml/min (>60); GFR (African American) 66 ML/MIN (>60); Globulin 3.5 g/dL (1.3-3.2); Glucose 163 mg/dl (74-100); Potassium 4.3 mmoL/L (3.5-5.1); Sodium 142 mmol/L (136-145); Total Protein,Serum 7.5 g/dl (6.3-8.2)
[2025-02-04 09:27] LABS: Thyroid Stimulating Hormone 2.29 uIU/mL (0.465-4.68)
[2025-02-04 10:38] LABS: Hemoglobin A1C 7.2 % (4.0-6.0)
== END 2025-02-04 23:59 | disposition home or self-care (01) ==
LOC: LAB.DROPOF 08:29
PROVIDERS: PCP Family Medicine; Visit Provider Family Medicine
DX: E11.9 Type 2 diabetes mellitus without complications (principal); D46.4 Refractory anemia, unspecified; E03.9 Hypothyroidism, unspecified
CPT/HCPCS: 36415; 80053; 83036; 84443; 85025

== ENCOUNTER 2025-03-18 14:40 | Outpatient (CLI) | payer MEDICARE, MEDICAID, SELFPAY ==
--- NOTE | 2025-03-18 14:15 | CT_ITS ---
FINAL REPORT TECHNIQUE: Postcontrast images of the pelvis and right lower extremity was performed by computed tomography. Extensive 3-D reconstruction images were performed. A CTA was performed. This study was performed with techniques to keep radiation doses as low as reasonably achievable (ALARA). Individualized dose reduction techniques using automated exposure control or adjustment of mA and/or kV according to the patient's size were employed. CLINICAL HISTORY: abnormal duplex COMPARISON: None FINDINGS: Pelvis: The urinary bladder is unremarkable. The appendix is not identified. There is no free fluid or adenopathy. CTA right lower extremity: The exam is initiated distal to the aortic bifurcation. The iliac vessels are unremarkable. The femoral vessels are unremarkable. The SFA is without significant stenosis. The popliteal artery is unremarkable. The trifurcation is unremarkable. The anterior tibial, posterior tibial, and peroneal vessels cross the ankle properly. Note is made of diffuse subcutaneous soft tissue edema below the knee, nonspecific. No loculated fluid collections are identified. There is a soft tissue defect in the hindfoot. Remaining soft tissues are without acute abnormality. IMPRESSION: No significant peripheral vascular disease in the right lower extremity. Reviewed, Interpreted and Dictated by Deepika Webb MD Transcribed by Radha Arceo Authenticated and . [facility]
[2025-03-18 15:26] LABS: Blood Urea Nitrogen 43 mg/dl (7-17); Estimated Glomerular Filt Rate 49 ml/min (>60); GFR (African American) 59 ML/MIN (>60)
[2025-03-18] MEDS: IOPAMIDOL-370 (76%);100ML BOTTLE 120 ML IV (16:34)
[2025-03-18] MEDS: SODIUM CHLORIDE 0.9% 10ML SYR (RAD ONLY) 10 ML IV (16:34)
[2025-03-18] MEDS: 0.9 % SODIUM CHLORIDE 50 ML VIAL 100 ML IV (16:34)
== END 2025-03-18 23:59 | disposition home or self-care (01) ==
LOC: RAD 14:42
PROVIDERS: PCP Family Medicine; Visit Provider Family Medicine
DX: I73.9 Peripheral vascular disease, unspecified (principal); R93.89 Abnormal findings on diagnostic imaging of other specified body structures
CPT/HCPCS: 36415; 73706; 82565; 84520; Q9967

== ENCOUNTER 2025-05-15 07:12 | Outpatient (CLI) | payer MEDICARE, MEDICAID, SELFPAY ==
--- OUTSIDE RECORDS SUMMARY | 2025-05-15 07:14 | XMS_ITS | Clinical Summary ---
Author Organization [facility] Address [address] [place] [address] Phone Care Team Providers Care Safety Admin Assistant Name Role Phone Unavailable Primary Care Provider Unavailabl e Medical History Medical History Date Comments Type 2 diabetes mellitus without complications ( HCC) Iron deficiency anemia Hypothyroidism Mixed hyperlipidemia Obesity Polyneuropathy Personal history of TIA (transient ischemic deisi ck) Essential (primary) hypertension Acquired absence of left leg above knee (HCC) Social History Tobacco Use Types Packs/Day Years Used Date Smoking Tobacco: Unknown Smokeless Tobacco: Never Tobacco Cessation:Counseling Given: No Alcohol Use Standard Drinks/Week Comments Not Currently 0 (1 standard drink = 0.6 oz pur e alcohol) Comments Unknown Sex and Gender Information Value Date Recorded Sex Assigned at Not on file Legal Sex Female 10:30 AM EDT Gender Identity Not on file Sexual Orientation Not on file Obstetrics History Plan of Treatment Health Maintenance Due Date Last Done Comments Wellness Exam Medicare 1953 Hepatitis C Screening 1968 DTaP/TDaP/Td (1 - Tdap) 1969 Breast Cancer Screening 1990 Cologuard 1995 Colon Cancer Screening 1995 Colonoscopy 1995 FIT 1995 Sigmoidoscopy 1995 Virtual Colonography 1995 Pneumococcal Vaccine 50+ (1 of 1 - PCV) 2000 Zoster (1 of 2) 2000 Bone Density Screening 2015 COVID-19 Vaccine (2023-2 5 season) 2024 Influenza Vaccine (#1) 2025 Hepatitis B Vaccine Aged Out No longe r eligible based on patient's age to complete this topic Meningococcal B Vaccine Aged Out No l onger eligible based on patient's age to complete this topic Insurance MEDICARE [place] PART A AND B MEDICAID [place]
--- OUTSIDE RECORDS SUMMARY | 2025-05-15 07:14 | XMS_ITS | Clinical Summary ---
Author Organization [facility] Address [address] [place] [address] Phone Care Team Providers Care Structural Ironworker Name Role Phone Unavailable Unavailable Conditions or Problems No information available. Medications No information available. Medications Administered No information available. Allergies, Adverse Reactions, Alerts No information available. Results No information available. Plan of Care No information available. Procedures No information available. Vital Signs No information available. Immunizations No information available. Advance Directives No information available.
[2025-05-15 07:53] LABS: Cholesterol 133 mg/dl (140-200); HDL Cholesterol 36 mg/dl (40-60); Triglycerides 147 mg/dl (30-150)
[2025-05-15 08:05] LABS: C-Reactive Protein 77.5 mg/L (0-4)
[2025-05-15 11:23] LABS: Hemoglobin A1C 10.3 % (4.0-6.0)
== END 2025-05-15 23:59 | disposition home or self-care (01) ==
PROVIDERS: PCP Nurse Practitioner Family; Visit Provider Nurse Practitioner Family
DX: E11.9 Type 2 diabetes mellitus without complications (principal); E78.5 Hyperlipidemia, unspecified; R70.0 Elevated erythrocyte sedimentation rate; R79.82 Elevated C-reactive protein (CRP)
CPT/HCPCS: 36415; 80061; 83036; 85651; 86140

== ENCOUNTER 2025-05-20 11:06 | Outpatient (CLI) | payer MEDICARE, MEDICAID, SELFPAY ==
--- NOTE | 2025-05-20 11:00 | US_ITS ---
FINAL REPORT CLINICAL HISTORY: RLE edema and pain, DM, HTN, HLD, CVA, Right claudication, Right claudication FINDINGS: ANKLE-BRACHIAL PRESSURE INDICES Pressure indices are as follows: RIGHT LOWER EXTREMITY: Ankle-brachial pressure index: 1.1 Comments: Normal IMPRESSION: No evidence of significant obstructive peripheral vascular disease of the right lower extremity. Reviewed, Interpreted and Dictated by Parvez Bruce MD Transcribed by Michelle Callaway Authenticated and [facility]
--- OUTSIDE RECORDS SUMMARY | 2025-05-20 11:28 | XMS_ITS | Clinical Summary ---
Author Organization [facility] Address [address] [place] [address] Phone Care Team Providers Care Rn Emergency Name Role Phone Unavailable Unavailable Conditions or Problems No information available. Medications No information available. Medications Administered No information available. Allergies, Adverse Reactions, Alerts No information available. Results No information available. Plan of Care No information available. Procedures No information available. Vital Signs No information available. Immunizations No information available. Advance Directives No information available.
--- OUTSIDE RECORDS SUMMARY | 2025-05-20 11:29 | XMS_ITS | Clinical Summary ---
Author Organization [facility] Address [address] [place] [address] Phone Care Team Providers Care Bioinformatics Team Member Name Role Phone Unavailable Primary Care Provider [...] MEDICARE [place] PART A AND B MEDICAID [place]
== END 2025-05-20 23:59 | disposition home or self-care (01) ==
LOC: RT 11:06
PROVIDERS: PCP Nurse Practitioner Family; Visit Provider Nurse Practitioner Family
DX: I73.9 Peripheral vascular disease, unspecified (principal); S91.301A Unspecified open wound, right foot, initial encounter; M79.604 Pain in right leg; E11.9 Type 2 diabetes mellitus without complications; I10 Essential (primary) hypertension; E78.5 Hyperlipidemia, unspecified; I63.9 Cerebral infarction, unspecified; R60.0 Localized edema
CPT/HCPCS: 93923

== ENCOUNTER 2025-05-22 07:05 | Outpatient (CLI) | payer MEDICARE, MEDICAID, SELFPAY ==
--- OUTSIDE RECORDS SUMMARY | 2025-05-22 07:08 | XMS_ITS | Clinical Summary ---
Author Organization [facility] Address [address] [place] [address] Phone Care Team Providers Care Glass Technician Name Role Phone Unavailable Primary Care Provider [...] MEDICARE [place] PART A AND B MEDICAID [place]
--- OUTSIDE RECORDS SUMMARY | 2025-05-22 07:08 | XMS_ITS | Clinical Summary ---
Author Organization [facility] Address [address] [place] [address] Phone Care Team Providers Care Drafting Clerk Name Role Phone Unavailable Unavailable Conditions or Problems No information available. Medications No information available. Medications Administered No information available. Allergies, Adverse Reactions, Alerts No information available. Results No information available. Plan of Care No information available. Procedures No information available. Vital Signs No information available. Immunizations No information available. Advance Directives No information available.
[2025-05-22 07:38] LABS: C-Reactive Protein 63.5 mg/L (0-4)
== END 2025-05-22 23:59 | disposition home or self-care (01) ==
PROVIDERS: PCP Nurse Practitioner Family; Visit Provider Nurse Practitioner Family
DX: R70.0 Elevated erythrocyte sedimentation rate (principal); R79.82 Elevated C-reactive protein (CRP)
CPT/HCPCS: 36415; 85651; 86140

== ENCOUNTER 2025-06-14 07:06 | Outpatient (CLI) | payer MEDICARE, MEDICAID, SELFPAY ==
--- OUTSIDE RECORDS SUMMARY | 2025-06-14 07:08 | XMS_ITS | Clinical Summary ---
Author Organization [facility] Address [address] [place] [address] Phone Care Team Providers Care Wireless Architect Name Role Phone Unavailable Unavailable Conditions or Problems No information available. Medications No information available. Medications Administered No information available. Allergies, Adverse Reactions, Alerts No information available. Results No information available. Plan of Care No information available. Procedures No information available. Vital Signs No information available. Immunizations No information available. Advance Directives No information available.
--- OUTSIDE RECORDS SUMMARY | 2025-06-14 07:08 | XMS_ITS | Clinical Summary ---
Author Organization [facility] Address [address] [place] [address] Phone Care Team Providers Care Longitudinal Float Operator Name Role Phone Unavailable Primary Care Provider [...] MEDICARE [place] PART A AND B MEDICAID [place]
[2025-06-14 12:50] LABS: C-Reactive Protein 29.6 mg/L (0-4)
== END 2025-06-14 23:59 | disposition home or self-care (01) ==
PROVIDERS: PCP Nurse Practitioner Family; Visit Provider Nurse Practitioner Family
DX: R70.0 Elevated erythrocyte sedimentation rate (principal); R79.82 Elevated C-reactive protein (CRP)
CPT/HCPCS: 85651; 86140; 87070; 87077; 87186; 87205

== ENCOUNTER 2025-06-21 13:26 | Outpatient (CLI) | payer MEDICARE, MEDICAID, SELFPAY ==
--- NOTE | 2025-06-21 13:30 | CT_ITS ---
FINAL REPORT TECHNIQUE: Thin section axial CT images with coronal and sagittal reformats were performed of the right foot. This study was performed with techniques to keep radiation doses as low as reasonably achievable (ALARA). Individualized dose reduction techniques using automated exposure control or adjustment of mA and/or kV according to the patient''s size were employed. CLINICAL HISTORY: rule out osteomyelitis FINDINGS: There is prominent subcutaneous soft tissue edema over the dorsum of the foot measuring 1.7 cm. There are moderate hypertrophic changes of the intertarsal joint. No definite evidence of bony erosion or periosteal reaction is noted. However, the distal end of the 1st distal phalanx appears slightly irregular. Findings may be developmental. Mild vascular calcifications are noted. IMPRESSION: Extensive soft tissue edema. Hypertrophic changes of the intertarsal joints. Irregularity at the tip of the 1st distal phalanx does not appear to be erosion. Clinical correlation recommended. Reviewed, Interpreted and Dictated by Parvez Bruce MD Transcribed by Michelle Callaway Authenticated and [facility]
--- OUTSIDE RECORDS SUMMARY | 2025-06-21 13:32 | XMS_ITS | Clinical Summary ---
Author Organization [facility] Address [address] [place] [address] Phone Care Team Providers Care Invoice Clerk Name Role Phone Unavailable Primary Care Provider [...] MEDICARE [place] PART A AND B MEDICAID [place]
== END 2025-06-21 23:59 | disposition home or self-care (01) ==
LOC: RAD 13:28
PROVIDERS: PCP Family Medicine; Visit Provider Family Medicine
DX: M19.071 Primary osteoarthritis, right ankle and foot (principal); M79.89 Other specified soft tissue disorders; R93.6 Abnormal findings on diagnostic imaging of limbs; I73.9 Peripheral vascular disease, unspecified; S91.301A Unspecified open wound, right foot, initial encounter
CPT/HCPCS: 73700

== ENCOUNTER 2025-06-28 18:58 | Outpatient (CLI) | payer MEDICARE, MEDICAID, SELFPAY ==
--- OUTSIDE RECORDS SUMMARY | 2025-06-28 19:01 | XMS_ITS | Clinical Summary ---
Author Organization [facility] Address [address] [place] [address] Phone Care Team Providers Care Cook Fry Name Role Phone Unavailable Primary Care Provider [...] MEDICARE [place] PART A AND B MEDICAID [place]
--- OUTSIDE RECORDS SUMMARY | 2025-06-28 19:01 | XMS_ITS | Clinical Summary ---
Author Organization [facility] Address [address] [place] [address] Phone Care Team Providers Care Music Professionals Name Role Phone Unavailable Unavailable Conditions or Problems No information available. Medications No information available. Medications Administered No information available. Allergies, Adverse Reactions, Alerts No information available. Results No information available. Plan of Care No information available. Procedures No information available. Vital Signs No information available. Immunizations No information available. Advance Directives No information available.
[2025-06-28 19:31] LABS: Anion Gap 12.5 mEq/L (5-15); Blood Urea Nitrogen 48 mg/dl (7-17); Calcium 8.7 mg/dl (8.4-10.2); Carbon Dioxide 27 mmol/L (22.0-30.0); Chloride 107 mmol/L (98-107); Creatinine,Serum 0.80 mg/dl (0.52-1.04); Estimated Glomerular Filt Rate 70 ml/min (>60); GFR (African American) 85 ML/MIN (>60); Glucose 156 mg/dl (74-100); Potassium 4.5 mmoL/L (3.5-5.1); Sodium 142 mmol/L (136-145)
[2025-06-28 19:36] LABS: Vancomycin,Trough 16.1 ug/mL (5.0-10.0)
== END 2025-06-28 23:59 | disposition home or self-care (01) ==
LOC: LAB.DROPOF 19:00
PROVIDERS: PCP Family Medicine; Visit Provider Family Medicine
DX: S81.809A Unspecified open wound, unspecified lower leg, initial encounter (principal); L08.9 Local infection of the skin and subcutaneous tissue, unspecified
CPT/HCPCS: 80048; 80202

== ENCOUNTER 2025-07-02 18:37 | Outpatient (CLI) | payer MEDICARE, MEDICAID, SELFPAY ==
--- OUTSIDE RECORDS SUMMARY | 2025-07-02 18:43 | XMS_ITS | Clinical Summary ---
Author Organization [facility] Address [address] [place] [address] Phone Care Team Providers Care Transition Mgr Name Role Phone Unavailable Unavailable Conditions or Problems No information available. Medications No information available. Medications Administered No information available. Allergies, Adverse Reactions, Alerts No information available. Results No information available. Plan of Care No information available. Procedures No information available. Vital Signs No information available. Immunizations No information available. Advance Directives No information available.
--- OUTSIDE RECORDS SUMMARY | 2025-07-02 18:44 | XMS_ITS | Clinical Summary ---
Author Organization [facility] Address [address] [place] [address] Phone Care Team Providers Care Medical Driver Name Role Phone Unavailable Primary Care Provider [...] MEDICARE [place] PART A AND B MEDICAID [place]
[2025-07-02 19:26] LABS: Anion Gap 16.1 mEq/L (5-15); Blood Urea Nitrogen 43 mg/dl (7-17); Calcium 8.9 mg/dl (8.4-10.2); Carbon Dioxide 23 mmol/L (22.0-30.0); Chloride 108 mmol/L (98-107); Creatinine,Serum 0.90 mg/dl (0.52-1.04); Estimated Glomerular Filt Rate 61 ml/min (>60); GFR (African American) 74 ML/MIN (>60); Glucose 126 mg/dl (74-100); Potassium 5.1 mmoL/L (3.5-5.1); Sodium 142 mmol/L (136-145)
[2025-07-02 19:38] LABS: Vancomycin,Trough 20.5 ug/mL (5.0-10.0)
== END 2025-07-02 23:59 | disposition home or self-care (01) ==
LOC: LAB.DROPOF 18:42
PROVIDERS: PCP Family Medicine; Visit Provider Family Medicine
DX: L08.9 Local infection of the skin and subcutaneous tissue, unspecified (principal)
CPT/HCPCS: 80048; 80202

== ENCOUNTER 2025-07-04 08:49 | Outpatient (CLI) | payer MEDICARE, MEDICAID, SELFPAY ==
--- OUTSIDE RECORDS SUMMARY | 2025-07-04 09:16 | XMS_ITS | Clinical Summary ---
Author Organization [facility] Address [address] [place] [address] Phone Care Team Providers Care Research Spec Name Role Phone Unavailable Unavailable Conditions or Problems No information available. Medications No information available. Medications Administered No information available. Allergies, Adverse Reactions, Alerts No information available. Results No information available. Plan of Care No information available. Procedures No information available. Vital Signs No information available. Immunizations No information available. Advance Directives No information available.
--- OUTSIDE RECORDS SUMMARY | 2025-07-04 09:16 | XMS_ITS | Clinical Summary ---
Author Organization [facility] Address [address] [place] [address] Phone Care Team Providers Care Boiling Tub Operator Name Role Phone Unavailable Primary Care [...] MEDICARE [place] PART A AND B MEDICAID [place]
[2025-07-04 10:11] LABS: Vancomycin,Trough 17.0 ug/mL (5.0-10.0)
== END 2025-07-04 23:59 | disposition home or self-care (01) ==
LOC: LAB.DROPOF 08:55
PROVIDERS: PCP Family Medicine; Visit Provider Family Medicine
DX: S91.309A Unspecified open wound, unspecified foot, initial encounter (principal); L08.9 Local infection of the skin and subcutaneous tissue, unspecified
CPT/HCPCS: 80202

== ENCOUNTER 2025-07-08 09:00 | Outpatient (CLI) | payer MEDICARE, MEDICAID, SELFPAY ==
--- OUTSIDE RECORDS SUMMARY | 2025-07-08 09:36 | XMS_ITS | Clinical Summary ---
Author Organization [facility] Address [address] [place] [address] Phone Care Team Providers Care Analysis Or Research Safety Inspector Name Role Phone Unavailable Unavailable Conditions or Problems No information available. Medications No information available. Medications Administered No information available. Allergies, Adverse Reactions, Alerts No information available. Results No information available. Plan of Care No information available. Procedures No information available. Vital Signs No information available. Immunizations No information available. Advance Directives No information available.
--- OUTSIDE RECORDS SUMMARY | 2025-07-08 09:37 | XMS_ITS | Clinical Summary ---
Author Organization [facility] Address [address] [place] [address] Phone Care Team Providers Care Technology Administrator Name Role Phone Unavailable Primary Care Provider [...] MEDICARE [place] PART A [place] B MED[place]ID [place]
[2025-07-08 09:50] LABS: Chloride 109 mmol/L (98-107); Sodium 142 mmol/L (136-145)
[2025-07-08 09:51] LABS: Potassium 5.1 mmoL/L (3.5-5.1)
[2025-07-08 09:53] LABS: Blood Urea Nitrogen 37 mg/dl (7-17); Creatinine,Serum 0.90 mg/dl (0.52-1.04); Estimated Glomerular Filt Rate 61 ml/min (>60); GFR (African American) 74 ML/MIN (>60)
[2025-07-08 09:54] LABS: Anion Gap 10.1 mEq/L (5-15); Calcium 8.5 mg/dl (8.4-10.2); Carbon Dioxide 28 mmol/L (22.0-30.0); Glucose 63 mg/dl (74-100)
[2025-07-08 13:08] LABS: Vancomycin,Trough 13.1 ug/mL (5.0-10.0)
== END 2025-07-08 23:59 | disposition home or self-care (01) ==
PROVIDERS: PCP Nurse Practitioner Family; Visit Provider Nurse Practitioner Family
DX: S91.309A Unspecified open wound, unspecified foot, initial encounter (principal)
CPT/HCPCS: 36415; 80048; 80202

== ENCOUNTER 2025-08-30 09:06 | Outpatient (CLI) | payer MEDICARE, MEDICAID, SELFPAY ==
--- OUTSIDE RECORDS SUMMARY | 2025-08-30 09:10 | XMS_ITS | Clinical Summary ---
Author Organization [facility] Address [address] [place] [address] Phone Care Team Providers Care Architectural Draftsperson Name Role Phone Unavailable Unavailable Conditions or Problems No information available. Medications No information available. Medications Administered No information available. Allergies, Adverse Reactions, Alerts No information available. Results No information available. Plan of Care No information available. Procedures No information available. Vital Signs No information available. Immunizations No information available. Advance Directives No information available.
--- OUTSIDE RECORDS SUMMARY | 2025-08-30 09:11 | XMS_ITS | Clinical Summary ---
Author Organization [facility] Address [address] [place] [address] Phone Care Team Providers Care Motorcycle Delivery Driver Name Role Phone Unavailable Primary Care [...] on file Sexual Orientation Not on file Plan of Treatment Health Maintenance Due Date [...] Screening 2015 COVID-19 Vaccine (2023-2 5 season) 2025 Influenza Vaccine (#1) 2025 Hepatitis B Vaccine Aged Out No longe r eligible based on patient's age to complete this topic Meningococcal B Vaccine Aged Out No l onger eligible based on patient's age to complete this topic Insurance MED[place]ARE [place] PART A AND B [place]
--- OUTSIDE RECORDS SUMMARY | 2025-08-30 09:11 | XMS_ITS | Patient Health Record ---
Author Organization [facility] Address [address] [place] [id number] Care Team Providers Care Coding Technician Name Role Phone George Ward Primary Care Provider Allergies Allergen (clinical drug ingredient) Drug/Non Drug Allergy documented on EMR Reaction Allergy Type Onset Date Status Medicinal cephalosporin and acting as antibacterial agent (FN) Cephalosporins Unknown Drug Allergy Active Reason For Referral No Information Medications Medication SIG (Take, Route, Frequency, Duration) Notes Start Date End Date Status HYDROcodone-Acetami nophen 5-325 MG 1 tab(s) orally every 6 hours prn 02/06/2021 Active Synthroid 100 MCG 1 tab(s) orally once a day Active ROBITUSSIN DM 2 TSP Q 4 H PRN *Please review f or potential replacement for e-prescription and drug interaction check* Active Colace 100 MG 1 cap(s) orally 2 times a day Active Potassium Chloride ER 10 MEQ 1 cap(s) orally BID Active Aspirin 81 81MG QD *Please review a nd pick correct strength-formulati on from [employer] options. If intended option is not shown, discontinue and re-order from Quick Search* Active Plavix 75 MG 1 tab(s) orally once a day Active Calcium 500 MG 1 TAB TID *Please review a nd pick correct strength-formulati on from [employer] options. If intended option is not shown, discontinue and re-order from Quick Search* Active B COMPLEX 100 QD *Please review f or potential replacement for e-prescription and drug interaction check* Active DNR *Please review f or potential replacement for e-prescription and drug interaction check* Active Atorvastatin Calcium 80 MG 1 tab(s) orally once a day Active Vitamin D2 50 MCG (1999 UT) as directed orally once a day Active CCHO EACH MEAL DONY; mechanical soft *Please review for potential replacement for e-prescription and drug interaction check* Active Lisinopril 20 MG 1 tab(s) orally once a day Active metFORMIN HCl ER (OSM) 500 MG 2 tab(s) twice a day Active Iron 325 MG 1 TAB QD *Please review a nd pick correct strength-formulati on from [employer] options. If intended option is not shown, discontinue and re-order from Quick Search* 02/22/2021 Active HumaLOG 100 UNIT/ML 0 subcutaneously sliding sca le AC.HS Active INCONTINENCE SKIN CARE BID AND PRN *Please review for potential replacement for e-prescription and drug interaction check* Active Diclofenac Sodium 50 MG 1 tab(s) orally 2 times a day Active BOWEL PROTOCOL FOR NO BM IN 72 HOURS NATURAL LAXATIVE 2 TBS PO BID; IF NO RESULTS IN 24 H, ADD MOM; IF NO RESULTS ADD DULCOLAX SUPP 10MG; IF NO RESULT, GIVE FLEETS ENEMA; IF STILL NO RESULTS, CALL MD *Please review for potential replacement for e-prescription and drug interaction check* Active Lyrica 150 MG 1 cap(s) orally 2 times a day; Duration: 30 days 02/06/2021 Active Immunizations Vaccine Route Administration Date Status Comme nts Hepatitis A (adult) Unknown 12/11/2018 Administered Hepatitis A (adult) Unknown 09/03/2019 Administered COVID 19 Moderna Unknown 01/16/2021 Administered Problems Problem Type SNOMED Code ICD Code Onset Dates Problem Status W/U Status Risk Notes Problem Hypertension (42022896) HTN (hypertension) (I10) Active confirmed Problem Hyperlipidemia (55270796) Hyperlipidemia (E78.5) Active confirmed Problem Cerebrovascular accident (679910759) CVA (cerebral infarction) (I63.9) Active confirmed Problem Diabetic neuropathy (227780105) Diabetic neuropathy (E11.40) Active confirmed Problem Hypocalcemia (7681665) Hypocalcemia (E83.51) Active confirmed Problem Type II diabetes mellitus without complication (247209044) T2DM (type 2 diabetes mellitus) (E11.9) Active confirmed Plan Of Treatment No Information Insurance Providers Payer Name Payer Address Payer Phone Subscriber Number Group Number Insured Name Patient Relationship to Insured Coverage Start Date Coverage End Date [employer] (MEDICAR E) [address] [address] [place] [address] [id number] MacoCamryn Self - patient is the insured Medical (General) History Medical History History ICD Code HTN DM TYPE2 PVD CVD CAD GERD MORBID OBESITY CHARCOT LEFT FOOT WITH CHRONIC ULCER hISTORY OF SLEEP APNEA KIDNEY DISEASE,stage 3 hYPERIPIDEMIA Hospitalization History Reason Date(Month/Year) [facility]I;SEPTIC SHOCK;AMS;ACUTE RIGHT OCCIPITAL CVA 01/28-02/06/2021
[2025-08-30 09:46] LABS: Alanine Aminotransferase 18 U/L (12-78); Albumin Level 3.3 g/dl (3.5-5.0); Albumin/Globulin Ratio 1.1 (1.1-1.8); Alkaline Phosphatase 117 U/L (38-126); Anion Gap 12.7 mEq/L (5-15); Aspartate Amino Transferase 27 U/L (14-36); Bilirubin,Total 0.4 mg/dl (0.2-1.3); Blood Urea Nitrogen 47 mg/dl (7-17); Calcium 8.5 mg/dl (8.4-10.2); Carbon Dioxide 28 mmol/L (22.0-30.0); Chloride 104 mmol/L (98-107); Cholesterol 151 mg/dl (140-200); Creatinine,Serum 0.80 mg/dl (0.52-1.04); Estimated Glomerular Filt Rate 70 ml/min (>60); GFR (African American) 85 ML/MIN (>60); Globulin 3.0 g/dL (1.3-3.2); Glucose 99 mg/dl (74-100); HDL Cholesterol 41 mg/dl (40-60); Potassium 4.7 mmoL/L (3.5-5.1); Sodium 140 mmol/L (136-145); Total Protein,Serum 6.3 g/dl (6.3-8.2); Triglycerides 123 mg/dl (30-150)
[2025-08-30 10:10] LABS: Hemoglobin A1C 6.8 % (4.0-6.0)
[2025-08-30 10:16] LABS: Thyroid Stimulating Hormone 0.59 uIU/mL (0.465-4.68)
[2025-08-30 10:54] LABS: Free T4 (Free Thyroxine) 1.65 ng/dl (0.78-2.19)
== END 2025-08-30 23:59 | disposition home or self-care (01) ==
PROVIDERS: PCP Family Medicine; Visit Provider Family Medicine
DX: E03.9 Hypothyroidism, unspecified (principal); E11.9 Type 2 diabetes mellitus without complications
CPT/HCPCS: 36415; 80053; 80061; 83036; 84439; 84443